=== PATIENT | male | born 1960 | race African-American/Black ===

== ENCOUNTER 2018-01-16 20:18 | Emergency (ER) | payer SELFPAY ==
[~2018-01-16] VITALS: Ht 177.8 cm; Wt 79.4 kg
[~2018-01-16 20:18] MED LIST: HYDR-971 PO; NAPR-683 PO
[2018-01-16 20:45] VITALS: BP 149/88
--- NOTE | 2018-01-16 21:27 | PHYS DOC ---
Past Medical History Past Medical History: No Pertinent History Past Surgical History: Tonsillectomy Smoking: Cigarettes, 1 Pack Per Day Alcohol Use: Occasionally Drug Use: None Adult General Chief Complaint Chief Complaint: Congestion HPI HPI Patient is a pleasant 57-year-old male, smoker, who presents to the emergency room for evaluation. He states that for the past 10 days, he has had nasal congestion, and a cough, which is mostly nonproductive. He states his congestion has moved down into his chest. He denies any significant shortness of breath, he does have some frontal headache, although he has had similar headaches in the past, the headache is not "worst headache of his life", and is not different than prior headaches he has had with minor illnesses. He denies otalgia or sore throat, abdominal pain, chest pain, nausea, vomiting. There are no alleviating or exacerbating factors to his symptoms he has taken over-the- counter medications without improvement in his symptoms. Review of Systems Review of Systems Constitutional: Denies fever or chills [] Eyes: Denies change in visual acuity, redness, or eye pain [] HENT: Denies otalgia or sore throat. Reports nasal congestion. [] Respiratory: Denies pleuritic chest pain or shortness of breath [] Cardiovascular: The patient denies any shortness of breath, chest pain, palpitations, or orthopnea [] GI: Denies abdominal pain, nausea, vomiting, bloody stools or diarrhea [] : Denies dysuria or hematuria [] Musculoskeletal: Denies back pain or joint pain [] Integument: Denies rash or skin lesions [] Neurologic: Denies mental status changes, weakness or sensory changes [] Allergies Allergies Allergies Coded Allergies Type Severity Reaction Last Updated Verified No Known Drug Allergies 05/27/14 No Physical Exam Physical Exam PHYSICAL EXAM: CONSTITUTIONAL: Well developed, well nourished HEAD: normocephalic, atraumatic EENT: PERRL, EOMI. Conjunctivae normal color, sclerae non-icteric; moist mucous membranes.Tympanic membranes are normal bilaterally. Oropharynx is nonerythematous. NECK: Supple, non-tender; no meningismus. LUNGS: Lungs CTA, breathing even and unlabored. Normal air movement. HEART: Regular rate and rhythm, no murmur CHEST: No deformity; non-tender ABDOMEN: The abdomen is soft, and non-tender, no masses or bruits. EXTREM: Normal ROM; no deformity, no calf tenderness. Normal pulses palpable in all extremities. There is no pedal edema. SKIN: No rash; no diaphoresis NEURO: Alert; normal speech and cognition; CN's grossly intact; strength grossly intact without focal deficit. BACK: No CVA TTP. Current Patient Data Vital Signs Vital Signs Date Time Temp Pulse Resp B/P (MAP) Pulse Ox O2 Delivery O2 Flow Rate FiO2 01/16/18 20:45 98.7 96 18 149/88 (108) 100 Room Air 98.7 EKG EKG [] Radiology/Procedures Radiology/Procedures [ER physician preliminary chest x-ray interpretation: No acute disease.] Course & Med Decision Making Course & Med Decision Making Pertinent Imaging studies reviewed. (See chart for details) [10:20 PM:Patient remains stable. I discussed test results, the need for close follow-up, and return precautions. The importance of smoking cessation was discussed with the patient.] Dragon Disclaimer Dragon Disclaimer This electronic medical record was generated, in whole or in part, using a voice recognition dictation system. Departure Departure Impression: Primary Impression: Upper respiratory infection Additional Impression: Cough Disposition: 01 HOME, SELF-CARE Condition: STABLE Referrals: ANNA AGUILAR MD (PCP) Patient Instructions: Cough, Adult, Smoking Cessation, Upper Respiratory Infection, Adult Additional Instructions: Gswc-srs-[id number] decongestants, such as Sudafed, may help improve your symptoms. Scripts Benzonatate (TESSALON PERLE) 100 Mg Capsule 100 MG PO TID PRN for COUGH, #30 CAP Prov: SELINA ZENDEJAS MD 01/16/18 Problem Qualifiers SELINA ZENDEJAS MD Jan 16, 2018 21:27
[2018-01-16] MEDS ORDERED: BENZ100C PO (22:23)
--- NOTE | 2018-01-17 05:21 | RAD ---
Indication:cough and congestion x a week TECHNIQUE:PA and lateral views of the chest COMPARISON: 01/30/2016 FINDINGS: Heart is normal in size. Lungs are hyperinflated with flattening of diaphragm. No pneumothorax or effusion. Visualized bony thorax within normal limits. IMPRESSION: Findings of COPD. Electronically signed by: Torres Smith DO (01/17/2018 5:17 AM) [facility]
== END 2018-01-16 22:39 | disposition home or self-care (01) ==
LOC: ER 20:18
DX: J06.9 Acute upper respiratory infection, unspecified (principal); R51 Headache; F17.210 Nicotine dependence, cigarettes, uncomplicated; Z90.89 Acquired absence of other organs
CPT/HCPCS: 71046; 99284

== ENCOUNTER 2018-08-20 13:40 | Emergency (ER) | payer SELFPAY ==
[~2018-08-20] VITALS: Ht 180.3 cm; Wt 68.0 kg
[~2018-08-20 13:40] MED LIST changes: +BENZ100C PO; +HYDR-3164 PO; -HYDR-971 PO
[2018-08-20 14:26] VITALS: BP 148/96
[2018-08-20] MEDS ORDERED: KETOROLAC 30 MG/ML VIAL. IM ONE (15:45)
--- NOTE | 2018-08-20 16:12 | RAD ---
Examination: 2 views of the sacrum and coccyx HISTORY: History of pain, fall. COMPARISON: None available. Findings: The alignment of the sacrum, coccyx grossly appears unremarkable. There is no obvious acute fracture identified. IMPRESSION: No acute osseous findings. Electronically signed by: Rafi Sauer MD (08/20/2018 4:09 PM) [facility]
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
== END 2018-08-20 16:41 | disposition home or self-care (01) ==
LOC: ER 13:40
DX: M54.5 Low back pain (principal); M53.3 Sacrococcygeal disorders, not elsewhere classified; Z90.89 Acquired absence of other organs; W10.2XXA Fall (on)(from) incline, initial encounter; Y93.89 Activity, other specified; Y92.89 Other specified places as the place of occurrence of the external cause; Y99.8 Other external cause status
CPT/HCPCS: 72220; 96372; 99284; J1885

== ENCOUNTER 2019-01-31 18:23 | Emergency (ER) | payer SELFPAY ==
[~2019-01-31] VITALS: Ht 181.6 cm; Wt 69.4 kg
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
[2019-01-31 19:08] LABS: BASO # 0.1 x10^3/uL (0.0-0.2); BASO % 1 % (0-3); EOS # 0.2 x10^3/uL (0.0-0.7); EOS % 3 % (0-3); HEMATOCRIT 39.7 % (39.0-53.0); HEMOGLOBIN 14.2 g/dL (13.0-17.5); LYMPH # 2.4 x10^3/uL (1.0-4.8); LYMPH % 30 % (24-48); MEAN CORPUSCULAR HEMOGLOBIN 30 pg (25-35); MEAN CORPUSCULAR HGB CONC 36 g/dL (31-37); MEAN CORPUSCULAR VOLUME 83 fL (79-100); MONO # 0.8 x10^3/uL (0.0-1.1); MONO % 10 % (0-9); NEUT # 4.5 x10^3/uL (1.8-7.7); NEUT % 57 % (31-73); PLATELET COUNT 276 x10^3/uL (140-400); RED CELL DISTRIBUTION WIDTH 14.5 % (11.5-14.5); WHITE BLOOD COUNT 7.9 x10^3/uL (4.0-11.0)
[2019-01-31 19:14] LABS: CALCIUM 9.6 mg/dL (8.5-10.1); CREATININE 1.4 mg/dL (0.7-1.3); GFR 62.6; POTASSIUM 4.1 mmol/L (3.5-5.1)
[2019-01-31 19:19] LABS: ALBUMIN 3.9 g/dL (3.4-5.0); ALBUMIN/GLOBULIN RATIO 1.1 (1.0-1.7); TOTAL BILIRUBIN 0.7 mg/dL (0.2-1.0); TOTAL PROTEIN 7.6 g/dL (6.4-8.2)
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
[2019-01-31] MEDS ORDERED: HYDR-3164 PO (20:28)
[2019-01-31] MEDS ORDERED: DICL50TA4 PO (20:28)
[2019-01-31] MEDS ORDERED: ORPH100T PO (20:28)
[2019-01-31 20:30] VITALS: BP 175/112
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
--- NOTE | 2019-02-01 12:00 | EKG ---
[facility] [address] [place] [address] Test Date: 2019-01-31 Test Time: 18:34:53 Pat Name: BROOKLYNN LUCIANO Department: Room: Gender: M Clinical Psychiatrist: : 1960 Requested By: WELLINGTON CUMMINS Order Number: [id number] Reading MD: Measurements Intervals [place] Rate: 78 P: 49 [place]: 144 QRS: 16 QRSD: 88 T: 31 QT: 378 QTc: 434 Interpretive Statements SINUS RHYTHM QRS(T) CONTOUR ABNORMALITY CONSISTENT WITH ANTEROSEPTAL INFARCT AGE UNDETERMINED ABNORMAL ECG RI6.01 No previous ECG available for comparison
== END 2019-01-31 20:52 | disposition home or self-care (01) ==
LOC: ER 18:23
DX: S16.1XXA Strain of muscle, fascia and tendon at neck level, initial encounter (principal); S29.012A Strain of muscle and tendon of back wall of thorax, initial encounter; S40.012A Contusion of left shoulder, initial encounter; R42 Dizziness and giddiness; Z90.89 Acquired absence of other organs; V53.5XXA Driver of pick-up truck or van injured in collision with car, pick-up truck or van in traffic accident, initial encounter; Y93.89 Activity, other specified; Y92.410 Unspecified street and highway as the place of occurrence of the external cause; Y99.8 Other external cause status
CPT/HCPCS: 36415; 70450; 71045; 72072; 72125; 73030; 80053; 84484; 85025; 93005; 99285-25

== ENCOUNTER 2019-02-04 14:01 | Emergency (ER) | payer OTHER ==
[~2019-02-04] VITALS: Ht 180.3 cm; Wt 69.4 kg
[~2019-02-04 14:01] MED LIST changes: +DICL50TA4 PO; +ORPH100T PO
[2019-02-04 14:23] VITALS: BP 170/103
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
== END 2019-02-04 15:36 | disposition home or self-care (01) ==
LOC: ER 14:01
DX: M54.5 Low back pain (principal); G89.11 Acute pain due to trauma; V49.88XA Car occupant (driver) (passenger) injured in other specified transport accidents, initial encounter; Y92.488 Other paved roadways as the place of occurrence of the external cause; Y93.89 Activity, other specified; Y99.8 Other external cause status
CPT/HCPCS: 72100; 99284

== ENCOUNTER 2019-11-11 15:15 | Emergency (ER) | payer SELFPAY ==
[~2019-11-11] VITALS: Ht 180.3 cm; Wt 70.0 kg
--- NOTE | 2019-11-11 16:10 | PHYS DOC ---
Past Medical History Past Medical History: No Pertinent History Past Surgical History: Tonsillectomy, Other Additional Past Surgical Histo: hernia, rt wrist,lt ankle Smoking Status: Current Every Day Smoker Alcohol Use: Occasionally Drug Use: None General Adult EDM: Chief Complaint: OTHER COMPLAINTS HPI: HPI: Patient is a 59 year old male who presents with right scapula pain that radiates down his right arm and causes intermittent numbness in his right arm. Patient reports that he woke up yesterday with the symptoms. He rates his pain 9 out of 10, it is worse with movement, he has been taking ibuprofen at home without any relief of symptoms. Patient reports that at this time he is not experiencing the numbness in his right arm. Review of Systems: Review of Systems: Constitutional: Denies fever or chills. [] Respiratory: Denies cough or shortness of breath. [] Cardiovascular: Denies chest pain or edema. [] Musculoskeletal: See HPI Neurologic: Denies headache, focal weakness or sensory changes. [] Psychiatric: Denies depression or anxiety. [] Heart Score: Risk Factors: Risk Factors: DM, Current or recent (<one month) smoker, HTN, HLP, family history of CAD, obesity. Risk Scores: Score 0 - 3: 2.5% MACE over next 6 weeks - Discharge Home Score 4 - 6: 20.3% MACE over next 6 weeks - Admit for Clinical Observation Score 7 - 10: 72.7% MACE over next 6 weeks - Early Invasive Strategies Allergies: Allergies: Allergies Coded Allergies Type Severity Reaction Last Updated Verified No Known Drug Allergies 05/27/14 No Physical Exam: PE: Constitutional: Well developed, well nourished, no acute distress, non-toxic appearance. [] HENT: Normocephalic, atraumatic, bilateral external ears normal, oropharynx moist, nose normal. [] Eyes: PERRLA, EOMI, conjunctiva normal, no discharge. [] Neck: Normal range of motion, no bony tenderness, supple, no stridor. [] Cardiovascular:Heart rate regular rhythm[] Lungs & Thorax: Bilateral breath sounds clear to auscultation [] Skin: Warm, dry, no erythema, no rash. [] Back: R trapezius muscle tenderness with palpation, no bony tenderness or deformity Extremities: R shoulder: no bony tenderness, no cyanosis, no clubbing, no edema, PMS intact. [] Neurologic: Alert and oriented X 3, normal motor function, normal sensory function, no focal deficits noted. [] Psychologic: Affect normal, judgement normal, mood normal. [] Current Patient Data: Vital Signs: Vital Signs Date Time Temp Pulse Resp B/P (MAP) Pulse Ox O2 Delivery O2 Flow Rate FiO2 11/11/19 15:48 98.0 84 20 175/116 (135) 98 Room Air 98.0 EKG: EKG: [] Radiology/Procedures: Radiology/Procedures: [] Course & Med Decision Making: Course & Med Decision Making Pertinent Labs and Imaging studies reviewed. (See chart for details) [] Dragon Disclaimer: [employer] Disclaimer: This electronic medical record was generated, in whole or in part, using a voice recognition dictation system. Departure Departure Impression: Primary Impression: Trapezius strain Qualified Codes: S46.811A - Strain of other muscles, fascia and tendons at shoulder and upper arm level, right arm, initial encounter Additional Impression: Radiculopathy affecting upper extremity Disposition: 01 HOME, SELF-CARE Condition: STABLE Referrals: ANNA AGUILAR MD (PCP) Patient Instructions: Trapezius Palsy with [facility] Additional Instructions: Fill the prescription(s) and use as directed. Apply heat or ice for to sore areas as needed for comfort. Activity as tolerated. Follow up with your primary care doctor or Dr. Cisse if symptoms persist, return to the ER if symptoms worsen. Scripts Prednisone (PREDNISONE) 20 Mg Tablet 1 TAB PO UD for 12 Days, #15 TAB 2 tabs by mouth days 1,2,3 then 1.5 tabs by mouth days 4,5,6 then 1 tab by mouth days 7,8,9 then 0.5 tab by mouth day 10,11,12 Prov: JULIUS LAWSON APRN 11/11/19 Cyclobenzaprine Hcl (CYCLOBENZAPRINE HCL) 10 Mg Tablet 1 TAB PO TID PRN for MUSCLE PAIN for 10 Days, #30 TAB 0 Refills Prov: JULIUS LAWSON APRN 11/11/19 Justicifation of Admission Dx: Justifications for Admission: Justification of Admission Dx: N/A JULIUS LAWSON APRN Nov 11, 2019 16:10
[2019-11-11] MEDS ORDERED: DEXAMETHASONE SOD PHOS 20 MG/5 ML VIAL. PO ONE (16:45)
[2019-11-11] MEDS ORDERED: ORPHENADRINE CITRATE 60 MG/2 ML VIAL. IM ONE (16:45)
[2019-11-11 17:30] VITALS: BP 170/106
[2019-11-11] MEDS ORDERED: CYCL10TA2 PO (17:31)
[2019-11-11] MEDS ORDERED: PRED20TA PO (17:31)
== END 2019-11-11 17:58 | disposition home or self-care (01) ==
LOC: ER 15:15
DX: S46.811A Strain of other muscles, fascia and tendons at shoulder and upper arm level, right arm, initial encounter (principal); R20.0 Anesthesia of skin; M54.10 Radiculopathy, site unspecified; F17.200 Nicotine dependence, unspecified, uncomplicated; Z98.890 Other specified postprocedural states; Z90.89 Acquired absence of other organs; X58.XXXA Exposure to other specified factors, initial encounter; Y93.89 Activity, other specified; Y92.89 Other specified places as the place of occurrence of the external cause; Y99.8 Other external cause status
CPT/HCPCS: 96372; 99283; J1100; J2360

== ENCOUNTER 2020-05-02 18:12 | Emergency (ER) | payer OTHER ==
[~2020-05-02] VITALS: Ht 180.3 cm; Wt 69.0 kg
[~2020-05-02 18:12] MED LIST changes: +CYCL10TA2 PO; +PRED20TA PO
[2020-05-02 19:34] VITALS: BP 140/99
[2020-05-02] MEDS ORDERED: METH4TAB2 PO (20:25)
[2020-05-02] MEDS ORDERED: NAPR220C4 PO (20:25)
[2020-05-02] MEDS ORDERED: CYCL10TA2 PO (20:25)
--- NOTE | 2020-05-02 20:26 | PHYS DOC ---
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 Patient describes the pain as burning. Denies any pain radiating to bilateral lower extremities. Denies any loss of bowel/bladder function. Denies any pain to the mid back, states most of the pain is on range of motion to his back Review of Systems: Review of Systems: Constitutional: Denies fever or chills. [] GI: Denies abdominal pain, nausea, vomiting, bloody stools or diarrhea. [] : Denies dysuria. [] Musculoskeletal: Reports bilateral low back pain Integument: Denies rash. [] Neurologic: Denies headache, focal weakness or sensory changes. [] Psychiatric: Denies depression or anxiety. [] Heart Score: Risk Factors: Risk Factors: DM, Current or recent (<one month) smoker, HTN, HLP, family history of CAD, obesity. Risk Scores: Score 0 - 3: 2.5% MACE over next 6 weeks - Discharge Home Score 4 - 6: 20.3% MACE over next 6 weeks - Admit for Clinical Observation Score 7 - 10: 72.7% MACE over next 6 weeks - Early Invasive Strategies Allergies: Allergies: Allergies Coded Allergies Type Severity Reaction Last Updated Verified No Known Drug Allergies 05/27/14 No Physical Exam: PE: Constitutional: Well developed, well nourished, no acute distress, non-toxic appearance. Abdomen: Bowel sounds normal, soft, no tenderness, no masses, no pulsatile masses. [] Skin: Warm, dry, no erythema, no rash. [] Back: Diffuse paraspinal muscle tenderness bilateral lumbar spine, no midline lumbar spine tenderness, no CVA tenderness. [] Extremities: No tenderness, no cyanosis, no clubbing, ROM intact, no edema. [] Neurologic: Alert and oriented X 3, normal motor function, normal sensory function, no focal deficits noted. [] Psychologic: Affect normal, judgement normal, mood normal. [] Current Patient Data: Vital Signs: Vital Signs Date Time Temp Pulse Resp B/P (MAP) Pulse Ox O2 Delivery O2 Flow Rate FiO2 05/02/20 19:34 97.9 86 18 140/99 (113) 98 Room Air 97.9 EKG: EKG: [] Radiology/Procedures: Radiology/Procedures: [] Course & Med Decision Making: Course & Med Decision Making Pertinent Labs and Imaging studies reviewed. (See chart for details) This is a 60-year-old male patient presented to the ED today with a lumbosacral strain, patient lifted a bump at work and developed low back pain. No cauda equina syndrome symptoms. Was discharged to home. Follow-up with primary care doctor. Etienne Disclaimer: Etienne Disclaimer: This electronic medical record was generated, in whole or in part, using a voice recognition dictation system. Departure Departure Impression: Primary Impression: Acute lumbosacral myofascial strain Qualified Codes: S39.012A - Strain of muscle, fascia and tendon of lower back, initial encounter Disposition: 01 DC HOME SELF CARE/HOMELESS Condition: STABLE Referrals: NO PCP (PCP) follow up with your doctor in one week Patient Instructions: Lumbosacral Strain Additional Instructions: You were seen for lumbosacral strain. Consider using a heating pad to your low back. Take the prescribed medications as ordered. Follow-up with your doctor in 1 to 2 weeks Scripts Naproxen Sodium (ALEVE) 220 Mg Capsule 220 MG PO BID PRN for PAIN, #14 CAP Prov: MYNOR LAZARO APRN 05/02/20 Methylprednisolone (MEDROL) 4 Mg Tab.ds.pk 1 PKG PO UD, #1 PKG Prov: MYNOR LAZARO APRN 05/02/20 Cyclobenzaprine Hcl (CYCLOBENZAPRINE HCL) 10 Mg Tablet 1 TAB PO TID, #30 TAB Prov: MYNOR LAZARO APRN 05/02/20 NEREIDAKevinMYNOR LENORE May 02, 2020 20:26
== END 2020-05-02 20:48 | disposition home or self-care (01) ==
LOC: ER 18:12
DX: S39.012A Strain of muscle, fascia and tendon of lower back, initial encounter (principal); F17.200 Nicotine dependence, unspecified, uncomplicated; X50.9XXA Other and unspecified overexertion or strenuous movements or postures, initial encounter; Y93.89 Activity, other specified; Y92.69 Other specified industrial and construction area as the place of occurrence of the external cause; Y99.8 Other external cause status
CPT/HCPCS: 99283

== ENCOUNTER 2021-04-15 12:52 | Emergency (ER) | payer SELFPAY ==
[~2021-04-15] VITALS: Ht 180.3 cm; Wt 69.4 kg
[~2021-04-15 12:52] MED LIST changes: +CYCL10TA19 PO; -CYCL10TA2 PO; +METH4TAB2 PO; +NAPR220C4 PO
[2021-04-15] MEDS ORDERED: KETOROLAC 30 MG/ML VIAL. IVP ONE (13:15)
[2021-04-15] MEDS ORDERED: diphenhydrAMINE 50 MG/ML VIAL IVP ONE (13:15)
[2021-04-15] MEDS ORDERED: PROCHLORPERAZINE 10 MG/2 ML VIAL. IV ONE (13:15)
--- NOTE | 2021-04-15 13:22 | PHYS DOC ---
Past Medical History Past Medical History: No Pertinent History Past Surgical History: Tonsillectomy, Other Additional Past Surgical Histo: hernia, rt wrist,lt ankle Smoking Status: Current Every Day Smoker Additional Information: >0.5 PPD Alcohol Use: Occasionally Drug Use: None General Adult EDM: Chief Complaint: HYPERTENSION HPI: HPI: Patient is a 61-year-old male who presents to the emergency department for elevated blood pressure reading at home. Patient reports that he has had a generalized headache since yesterday and he googled that and said that it he might have an elevated blood pressure reading. He checked his blood pressure with a wrist cuff that his sister had at home and said that his blood pressure was 201/142. He does not have a history of hypertension and does not take any medications at home. Patient denies chest pain, shortness of breath, dizziness, nausea, vomiting, neutral rigidity, fevers, thunderclap headache. Patient did not take anything for his headache prior to arrival. Patient states he recently had a tooth pulled and has had generalized head and facial pain since and was unsure if that was the cause of his headache. When patient arrived his bp is mildly elevated at 156/103. Review of Systems: Review of Systems: 14 body systems of the review of systems have been reviewed. See HPI for pertinent positive and negative responses, otherwise all other systems are negative, nonpertinent or noncontributory Heart Score: C/O Chest Pain: No Risk Factors: Risk Factors: DM, Current or recent (<one month) smoker, HTN, HLP, family history of CAD, obesity. Risk Scores: Score 0 - 3: 2.5% MACE over next 6 weeks - Discharge Home Score 4 - 6: 20.3% MACE over next 6 weeks - Admit for Clinical Observation Score 7 - 10: 72.7% MACE over next 6 weeks - Early Invasive Strategies Current Medications: Current Medications Medications (Trade) Dose Ordered Sig/Candie Start Time Stop Time Status Last Admin Dose Admin Diphenhydramine HCl (Benadryl) 25 mg 1X ONCE 04/15/21 13:15 04/15/21 13:16 UNV Ketorolac Tromethamine (Toradol 30mg Vial) 30 mg 1X ONCE 04/15/21 13:15 04/15/21 13:16 UNV Prochlorperazine Edisylate (Compazine) 10 mg 1X ONCE 04/15/21 13:15 04/15/21 13:16 UNV Allergies: Allergies: Allergies Coded Allergies Type Severity Reaction Last Updated Verified No Known Drug Allergies 05/27/14 No Physical Exam: PE: Constitutional: Well developed, well nourished, no acute distress, non-toxic appearance. [] HENT: Normocephalic, atraumatic, bilateral external ears normal, oropharynx moist, no oral exudates, nose normal, no facial swelling. [] Eyes: PERRL, EOMI, conjunctiva normal, no discharge. [] Neck: Normal range of motion, no tenderness, no nuchal rigidity, supple, no stridor. [] Cardiovascular:Heart rate regular rhythm, no murmur [] Lungs & Thorax: Bilateral breath sounds clear to auscultation [] Abdomen: Bowel sounds normal, soft, no tenderness, no masses, no pulsatile masses. [] Skin: Warm, dry, no erythema, no rash. [] Back: normal ROM Extremities: No tenderness, no cyanosis, no clubbing, ROM intact, no edema. [] Neurologic: Alert and oriented X 3, normal motor function, normal sensory function, no focal deficits noted. [] Psychologic: Affect normal, judgement normal, mood normal. [] Current Patient Data: Labs: Laboratory Tests Test 04/15/21 13:51 White Blood Count 9.6 x10^3/uL Red Blood Count 5.04 x10^6/uL Hemoglobin 14.5 g/dL Hematocrit 41.9 % Mean Corpuscular Volume 83 fL Mean Corpuscular Hemoglobin 29 pg Mean Corpuscular Hemoglobin Concent 35 g/dL Red Cell Distribution Width 14.5 % Platelet Count 302 x10^3/uL Neutrophils (%) (Auto) 68 % Lymphocytes (%) (Auto) 20 % Monocytes (%) (Auto) 7 % Eosinophils (%) (Auto) 3 % Basophils (%) (Auto) 1 % Neutrophils # (Auto) 6.6 x10^3/uL Lymphocytes # (Auto) 1.9 x10^3/uL Monocytes # (Auto) 0.7 x10^3/uL Eosinophils # (Auto) 0.3 x10^3/uL Basophils # (Auto) 0.1 x10^3/uL Sodium Level 139 mmol/L Potassium Level 4.9 mmol/L Chloride Level 107 mmol/L Carbon Dioxide Level 25 mmol/L Anion Gap 7 Blood Urea Nitrogen 14 mg/dL Creatinine 1.1 mg/dL Estimated GFR (Cockcroft-Gault) 81.8 BUN/Creatinine Ratio 13 Glucose Level 109 mg/dL Calcium Level 8.5 mg/dL Total Bilirubin 0.5 mg/dL Aspartate Amino Transf (AST/SGOT) 18 U/L Alanine Aminotransferase (ALT/SGPT) 23 U/L Alkaline Phosphatase 73 U/L Troponin I High Sensitivity 10 ng/L Total Protein 6.5 g/dL Albumin 2.9 g/dL Albumin/Globulin Ratio 0.8 Current Medications Medications (Trade) Dose Ordered Sig/Candie Route PRN Reason Start Time Stop Time Status Last Admin Dose Admin Prochlorperazine Edisylate (Compazine) 10 mg 1X ONCE IV 04/15/21 13:15 04/15/21 13:19 DC 04/15/21 13:58 Diphenhydramine HCl (Benadryl) 25 mg 1X ONCE IVP 04/15/21 13:15 04/15/21 13:19 DC 04/15/21 13:58 Ketorolac Tromethamine (Toradol 30mg Vial) 30 mg 1X ONCE IVP 04/15/21 13:15 04/15/21 13:19 DC 04/15/21 13:58 Vital Signs: Vital Signs Date Time Temp Pulse Resp B/P (MAP) Pulse Ox O2 Delivery O2 Flow Rate FiO2 04/15/21 12:54 98.2 81 16 156/103 (120) 98 Room Air 98.2 EKG: EKG: [] Radiology/Procedures: Radiology/Procedures: [] Course & Med Decision Making: Course & Med Decision Making Pertinent Labs and Imaging studies reviewed. (See chart for details) Patient presents to the emergency department for generalized headache that started last night. Patient believes that his headache may have been caused by his recent tooth that was removed or elevated blood pressure. He does not have a history of hypertension does not take any medications at home. Patient denies any symptoms that would indicate acute organ damage. He does not have any meningeal signs. No thunderclap headache. Work-up in the ER consisted of blood work and his headache was treated with a migraine cocktail. Following treatment in the emergency department, patient reports relief in his headache. Work-up in the ER was unremarkable, patient did not have any findings consistent with endorgan damage. Patient's blood pressure has improved to 150/90. Patient advised to purchase a blood pressure cuff and monitor his blood pressures and keep a log and follow-up with his primary care provider if he requires any blood pressure medication. Advised to take Tylenol/ibuprofen for pain. I discussed with patient all findings and diagnostic testing as well as the need to follow-up with PCP for further evaluation and treatment or return to the ER if any new or worsening symptoms. Strict return precautions were also discussed at length. Patient voiced understanding and agreement with the plan. Patient is hemodynamically stable at the time of disposition. Dragon Disclaimer: [employer] Disclaimer: This electronic medical record was generated, in whole or in part, using a voice recognition dictation system. Departure Departure Impression: Primary Impression: Asymptomatic hypertension Disposition: HOME / SELF CARE / HOMELESS Condition: GOOD Referrals: NO PCP (PCP) Patient Instructions: General Headache Without Cause, [id number], Hypertension Additional Instructions: You were seen in the emergency department today for a headache and elevated blood pressure readings at home. Your headache was treated with a migraine cocktail and you reported improvement in your symptoms. Please continue to take Tylenol and/or ibuprofen for pain at home. Increase your fluids and rest. I would advise you to purchase a blood pressure cuff and monitor your blood pressures at home and keep a log of them. Please follow-up with your primary care provider on Saturday regarding your ER visit. Next time you follow-up with your primary care provider, you can show them your log of blood pressures and they can determine if you require blood pressure management. Please return to the emergency department if you develop worsening of your headache, chest pain, shortness of breath, dizziness, intractable vomiting, fevers, body aches or any new or worsening concerns. MARGARITO TINOCO APRN Apr 15, 2021 13:22
[2021-04-15 13:58] LABS: BASO # 0.1 x10^3/uL (0.0-0.2); BASO % 1 % (0-3); EOS # 0.3 x10^3/uL (0.0-0.7); EOS % 3 % (0-3); HEMATOCRIT 41.9 % (39.0-53.0); HEMOGLOBIN 14.5 g/dL (13.0-17.5); LYMPH # 1.9 x10^3/uL (1.0-4.8); LYMPH % 20 % (24-48); MEAN CORPUSCULAR HEMOGLOBIN 29 pg (25-35); MEAN CORPUSCULAR HGB CONC 35 g/dL (31-37); MEAN CORPUSCULAR VOLUME 83 fL (79-100); MONO # 0.7 x10^3/uL (0.0-1.1); MONO % 7 % (0-9); NEUT # 6.6 x10^3/uL (1.8-7.7); NEUT % 68 % (31-73); PLATELET COUNT 302 x10^3/uL (140-400); RED BLOOD COUNT 5.04 x10^6/uL (4.30-5.70); RED CELL DISTRIBUTION WIDTH 14.5 % (11.5-14.5); WHITE BLOOD COUNT 9.6 x10^3/uL (4.0-11.0)
[2021-04-15 14:07] LABS: CALCIUM 8.5 mg/dL (8.5-10.1); CREATININE 1.1 mg/dL (0.7-1.3); GFR 81.8; POTASSIUM 4.9 mmol/L (3.5-5.1)
[2021-04-15 14:13] LABS: ALBUMIN 2.9 g/dL (3.4-5.0); ALBUMIN/GLOBULIN RATIO 0.8 (1.0-1.7); TOTAL BILIRUBIN 0.5 mg/dL (0.2-1.0); TOTAL PROTEIN 6.5 g/dL (6.4-8.2)
[2021-04-15 14:16] VITALS: BP 153/92
== END 2021-04-15 14:37 | disposition home or self-care (01) ==
LOC: ER 12:52
DX: I10 Essential (primary) hypertension (principal); F17.200 Nicotine dependence, unspecified, uncomplicated
CPT/HCPCS: 36415; 80053; 84484; 85025; 96374; 96375; 99284; J0780; J1200; J1885

== ENCOUNTER 2021-07-16 10:37 | Inpatient (IN) | payer SELFPAY ==
[~2021-07-16] VITALS: Ht 181.6 cm; Wt 70.7 kg
[2021-07-16] MEDS ORDERED: hydrALAZINE 20 MG/ML VIAL. IVP ONE (11:45)
[2021-07-16] MEDS ORDERED: IV NORMAL SALINE 1000ML BAG 1,000 ML IV ONE (11:45)
[2021-07-16 12:07] LABS: BASO # 0.1 x10^3/uL (0.0-0.2); BASO % 1 % (0-3); EOS # 0.2 x10^3/uL (0.0-0.7); EOS % 2 % (0-3); HEMATOCRIT 42.2 % (39.0-53.0); HEMOGLOBIN 14.8 g/dL (13.0-17.5); LYMPH % 20 % (24-48); MEAN CORPUSCULAR HEMOGLOBIN 28 pg (25-35); MEAN CORPUSCULAR HGB CONC 35 g/dL (31-37); MEAN CORPUSCULAR VOLUME 81 fL (79-100); MONO # 0.7 x10^3/uL (0.0-1.1); MONO % 7 % (0-9); NEUT # 6.9 x10^3/uL (1.8-7.7); NEUT % 70 % (31-73); PLATELET COUNT 286 x10^3/uL (140-400); RED BLOOD COUNT 5.22 x10^6/uL (4.30-5.70); RED CELL DISTRIBUTION WIDTH 15.3 % (11.5-14.5); WHITE BLOOD COUNT 9.9 x10^3/uL (4.0-11.0)
[2021-07-16 12:18] LABS: CALCIUM 8.8 mg/dL (8.5-10.1); CREATININE 1.2 mg/dL (0.7-1.3); POTASSIUM 4.1 mmol/L (3.5-5.1)
[2021-07-16 12:19] LABS: BACTERIA,URINE 0 /HPF (0-FEW); RBC,URINE 0 /HPF (0-2); WBC,URINE OCC /HPF (0-4)
[2021-07-16 12:24] LABS: ALBUMIN 3.6 g/dL (3.4-5.0); ALBUMIN/GLOBULIN RATIO 0.9 (1.0-1.7); TOTAL BILIRUBIN 0.4 mg/dL (0.2-1.0); TOTAL PROTEIN 7.5 g/dL (6.4-8.2)
--- NOTE | 2021-07-16 12:56 | RAD ---
INDICATION: Reason: Dizziness, hypertensive emergency / Spl. Instructions: / History: COMPARISON: January 2019 TECHNIQUE: Axial CT images obtained through the head without intravenous contrast. One or more of the following individualized dose reduction techniques were utilized for this examinat ion: 1. Automated exposure control; 2. Adjustment of the mA and/or kV according to patient size; 3 . Use of iterative reconstruction technique. FINDINGS: No intracranial hemorrhage. No significant midline shift. Ventricles and sulci are globally prominent. Scattered foci of low attenuation within the white matter. Region of low density in the cerebellum. Portions of vascular are high density including in the basil ar artery region. IMPRESSION: * There is a region of low density within the left side of the cerebellum. Given the patient's symp toms and the presence of this finding this could be secondary to either an area of edema from causes such as left-sided cerebellar ischemia or gliosis from infarct which has occurred after the patient's prior study from January 2019. MRI could better assess the acuity of this finding since it could be acute or chronic. There is also some high density at the basilar artery in this region which could be from the patient's calcific atherosclerosis and artifact but could be further evaluated on MRI as we ll to ensure that there is no thrombus contributing to this appearance. Report called to the ER at 12 :39 PM on date of exam. * Scattered regions of low attenuation within the white matter. Non-specific in nature but a common finding and frequently secondary to small vessel ischemic disease. Electronically signed by: Landon Jacinto MD (07/16/2021 12:54 PM) [id number]
--- NOTE | 2021-07-16 13:01 | PHYS DOC ---
Past Medical History Past Medical History: No Pertinent History Past Surgical History: Tonsillectomy, Other Additional Past Surgical Histo: hernia, rt wrist,lt ankle Smoking Status: Current Every Day Smoker Alcohol Use: Occasionally Drug Use: None General Adult EDM: Chief Complaint: HYPERTENSION HPI: HPI: Patient is a 61 male presents to the emergency department complaining of sudden onset of headache with feeling off balance that started yesterday at approximately 1 PM. 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 Patient reported a 10 out of 10 pain yesterday, did not take pain medications, woke up this morning with similar symptoms stating that his head does not hurt as bad as it did yesterday currently rating it a 9 out of 10. Reports pain in his head hurts all over, cannot pinpoint a specific area of pain. Denies nausea, vomiting, diarrhea. Reports periods of blurred vision but currently denies visual disturbances at this time. Patient denies recent fever or chills, denies chest pains, chest palpitations, chest or nasal congestion. Patient reports being recently diagnosed with hypertension in which his primary care provider started him on 25 mg losartan once daily. Patient denies a family history of sudden cardiac , however does report a family history of hypertension, diabetes, and heart disease. Patient states he does smoke cigarettes, drinks occasionally, denies illicit drug use. Patient denies other physical complaints or physical concerns. Review of Systems: Review of Systems: 14 body systems of review of systems have been reviewed. See HPI for pertinent positives and negative responses, otherwise all other systems are negative, nonpertinent or noncontributory. Constitutional: Negative except as outlined in HPI above. Skin: Negative except as outlined in HPI above. Eyes: Negative except as outlined in HPI above. HENT: Negative except as outlined in HPI above. Respiratory: Negative except as outlined in HPI above. Cardiovascular: Negative except as outlined in HPI above. GI: Negative except as outlined in HPI above. : Negative except as outlined in HPI above. Musculoskeletal: Negative except as outlined in HPI above. Integument: Negative except as outlined in HPI above. Neurologic: Negative except as outlined in HPI above. Endocrine: Negative except as outlined in HPI above. Lymphatic: Negative except as outlined in HPI above. Psychiatric: Negative except as outlined in HPI above. Heart Score: C/O Chest Pain: No Risk Factors: Risk Factors: DM, Current or recent (<one month) smoker, HTN, HLP, family history of CAD, obesity. Risk Scores: Score 0 - 3: 2.5% MACE over next 6 weeks - Discharge Home Score 4 - 6: 20.3% MACE over next 6 weeks - Admit for Clinical Observation Score 7 - 10: 72.7% MACE over next 6 weeks - Early Invasive Strategies Current Medications: Current Medications Medications (Trade) Dose Ordered Sig/Candie Start Time Stop Time Status Last Admin Dose Admin Diphenhydramine HCl (Benadryl) 25 mg 1X ONCE 07/16/21 13:00 07/16/21 13:01 UNV Fentanyl Citrate (Fentanyl 2ml Vial) 75 mcg 1X ONCE 07/16/21 13:00 07/16/21 13:01 UNV Hydralazine HCl (Apresoline Inj) 10 mg 1X ONCE 07/16/21 11:45 07/16/21 11:46 DC 07/16/21 11:50 10 MG Prochlorperazine Edisylate (Compazine) 10 mg 1X ONCE 07/16/21 13:00 07/16/21 13:01 UNV Sodium Chloride 1,000 ml @ 1,000 mls/hr 1X ONCE 07/16/21 11:45 07/16/21 12:44 DC 07/16/21 11:52 1,000 MLS/HR Allergies: Allergies: Allergies Coded Allergies Type Severity Reaction Last Updated Verified No Known Drug Allergies 05/27/14 No Physical Exam: PE: Constitutional: Well developed, well nourished, no acute distress, non-toxic appearance. 61-year-old male in no apparent distress. Patient's complaint of p ain level exceeds patient's presentation and examination. HENT: Normocephalic, atraumatic. Oropharynx moist, pink, no deep tissue infectious process appreciated, bilateral TMs intact and within normal limits. There is no lymphadenopathy of the head or neck appreciated. Eyes: Conjunctiva normal, no discharge. Nose scleral icterus appreciated Neck: Normal range of motion, no stridor. No meningismus signs, no nuchal rigidity. Cardiovascular: No cyanosis appreciated, distal cap refill less than 2 seconds. Heart sounds S1-S2 dilatation, RRR. Lungs & Thorax: Patient is in no respiratory distress, no audible adventitious lung sounds appreciated. Normal work of breathing, lung sounds clear to auscultation all lung baez. Abdomen: Nontender, no abnormalities noted. Skin: Warm, dry, no erythema, no rash. Back: No tenderness, no deformities. Extremities: No tenderness, no cyanosis, no clubbing, ROM intact, no edema. Neurologic: Alert and oriented X 3, normal motor function, normal sensory function, no focal deficits noted. Satisfactory heel bishop test bilaterally, satisfactory nose finger test, ED NIHSS scale equals 0. Psychologic: Affect normal, judgement normal, mood normal. Current Patient Data: Labs: Laboratory Tests Test 07/16/21 11:43 07/16/21 11:50 Urine Collection Type Unknown Urine Color (Auto) Light yellow Urine Turbidity Clear Urine pH (Auto) 5.5 (<5.0-8.0) Urine Specific [place] 1.015 (1.000-1.030) Urine Protein (Auto) Negative mg/dL (Negative) Urine Glucose (Auto)(UA) Negative mg/dL (Negative) Urine Ketones (Auto) Negative mg/dL (Negative) Urine Blood (Auto) Negative (Negative) Urine Nitrite Negative (Negative) Urine Bilirubin (Auto) Negative (Negative) Urine Urobilinogen (Auto) Normal mg/dL (Normal) Urine Leukocyte Esterase (Auto) Negative (Negative) Urine RBC 0 /HPF (0-2) Urine WBC Occ /HPF (0-4) Urine Squamous Epithelial Cells Occ /LPF Urine Bacteria 0 /HPF (0-FEW) Urine Mucus Slight /LPF White Blood Count 9.9 x10^3/uL (4.0-11.0) Red Blood Count 5.22 x10^6/uL (4.30-5.70) Hemoglobin 14.8 g/dL (13.0-17.5) Hematocrit 42.2 % (39.0-53.0) Mean Corpuscular Volume 81 fL (79-100) Mean Corpuscular Hemoglobin 28 pg (25-35) Mean Corpuscular Hemoglobin Concent 35 g/dL (31-37) Red Cell Distribution Width 15.3 % (11.5-14.5) H Platelet Count 286 x10^3/uL (140-400) Neutrophils (%) (Auto) 70 % (31-73) Lymphocytes (%) (Auto) 20 % (24-48) L Monocytes (%) (Auto) 7 % (0-9) Eosinophils (%) (Auto) 2 % (0-3) Basophils (%) (Auto) 1 % (0-3) Neutrophils # (Auto) 6.9 x10^3/uL (1.8-7.7) Lymphocytes # (Auto) 2.0 x10^3/uL (1.0-4.8) Monocytes # (Auto) 0.7 x10^3/uL (0.0-1.1) Eosinophils # (Auto) 0.2 x10^3/uL (0.0-0.7) Basophils # (Auto) 0.1 x10^3/uL (0.0-0.2) Sodium Level 141 mmol/L (136-145) Potassium Level 4.1 mmol/L (3.5-5.1) Chloride Level 105 mmol/L (98-107) Carbon Dioxide Level 27 mmol/L (21-32) Anion Gap 9 (6-14) Blood Urea Nitrogen 16 mg/dL (8-26) Creatinine 1.2 mg/dL (0.7-1.3) Estimated GFR (Cockcroft-Gault) 74.0 BUN/Creatinine Ratio 13 (6-20) Glucose Level 106 mg/dL (70-99) H Calcium Level 8.8 mg/dL (8.5-10.1) Total Bilirubin 0.4 mg/dL (0.2-1.0) Aspartate Amino Transferase (AST) 18 U/L (15-37) Alanine Aminotransferase (ALT) 22 U/L (16-63) Alkaline Phosphatase 86 U/L (46-116) Troponin I High Sensitivity 18 ng/L (4-75) AU-Jad-P-Type Natriuretic Peptide 61 pg/mL (0-124) Total Protein 7.5 g/dL (6.4-8.2) Albumin 3.6 g/dL (3.4-5.0) Albumin/Globulin Ratio 0.9 (1.0-1.7) L Laboratory Tests 07/16/21 11:50 Laboratory Tests 07/16/21 11:50 Vital Signs: Vital Signs Date Time Temp Pulse Resp B/P (MAP) Pulse Ox O2 Delivery O2 Flow Rate FiO2 07/16/21 11:56 78 20 167/113 (131) 97 Room Air 07/16/21 10:43 97.8 97.8 EKG: EKG: EKG performed 1142 by ED nursing staff shows a normal sinus rhythm with leftward axis deviation, heart rate 69 bpm, TX interval 0.142, QTc interval 0.434, there is no acute STEMI, no ACS, no acute ischemia appreciated, EKG interpreted by ED attending physician Dr. Braxton. Radiology/Procedures: Radiology/Procedures: REASON: Dizziness, hypertensive emergency PROCEDURE: CT HEAD WO CONTRAST INDICATION: Reason: Dizziness, hypertensive emergency / Spl. Instructions: / History: COMPARISON: January 2019 TECHNIQUE: Axial CT images obtained through the head without intravenous contrast. One or more of the following individualized dose reduction techniques were utilized for this examination: 1. Automated exposure control; 2. Adjustment of the mA and/or kV according to patient size; 3. Use of iterative reconstruction technique. FINDINGS: No intracranial hemorrhage. No significant midline shift. Ventricles and sulci are globally prominent. Scattered foci of low attenuation within the white matter. Region of low density in the cerebellum. Portions of vascular are high density including in the basilar artery region. IMPRESSION: * There is a region of low density within the left side of the cerebellum. Given the patient's symptoms and the presence of this finding this could be secondary to either an area of edema from causes such as left-sided cerebellar ischemia or gliosis from infarct which has occurred after the patient's prior study from January 2019. MRI could better assess the acuity of this finding since it could be acute or chronic. There is also some high density at the basilar artery in this region which could be from the patient's calcific atherosclerosis and artifact but could be further evaluated on MRI as well to ensure that there is no thrombus contributing to this appearance. Report called to the ER at 12:39 PM on date of exam. * Scattered regions of low attenuation within the white matter. Non-specific in nature but a common finding and frequently secondary to small vessel ischemic disease. Electronically signed by: Landon Jacinto MD (07/16/2021 12:54 PM) DESKTOP- [id number] Course & Med Decision Making: Course & Med Decision Making Pertinent Labs and Imaging studies reviewed. (See chart for details) 51-year-old male, vital signs reviewed, presents emergency department concerning headache with feeling unbalanced. Patient physical examination is unremarkable, patient has a complaint of pain that exceeds presentation examination, patient does present in hypertensive crisis, right brachial blood pressure 178/121, left brachial prep lecture 178/106. Will order CT head without contrast, CBC, CMP, urinalysis assay, EKG, troponin I to rule out hypertension with endorgan damage, will order 10 mg hydralazine. Cardiac monitoring. House radiologist called to review CT head with concerns of acute left PICA infarct of cerebellum, these are apparent changes when compared to previous CT head without contrast in 2019. Recommended MRI for further evaluation. Called and discussed patient case and ED work-up with neurology specialist Dr. Mejia who recommends patient have 324 aspirin, no further blood pressure management, current blood pressure is 176/110. Recommended calling banquet houseperson to have hazmat technician to be called in for emergent MRI brain. This has been ordered, will review results with Dr. Mejia when available. Discussed with neurologist recommendations with patient, patient is amenable to ED angela nning. Patient is outside TPA window. Symptoms started yesterday at 1 PM. MRI of brain concerning for acute on subacute cerebellar infarct, called and discussed findings with neurology specialist Dr. Mejia who recommends patient be admitted to the hospital, start on atorvastatin 20 mg daily, admit to inpatient management services. Called and discussed patient case and ED work-up with inpatient management physician Dr. Capellan, discussed Dr. Mejia's recommendations, Dr. Capellan agrees patient's case warrants admission to med telemetry unit, patient is awaiting room assignment from banquet houseperson at this time, remains hemodynamically stable. Etienne Disclaimer: Etienne Disclaimer: This electronic medical record was generated, in whole or in part, using a voice recognition dictation system. NIHSS Stroke Scale NIH Stroke Scale: NIH Stroke Scale Response (Comments) Value Level of Consciousness: 0 Alert/Responsive 0 LOC Questions: 0 Answers both correctly 0 LOC Commands: 0 Performs both tasks 0 Best Gaze: 0 Normal 0 Visual: 0 No visual loss 0 Facial Palsy: 0 Normal, symmetrical 0 Motor - Left Arm 0 No drift 0 Motor - Right Arm 0 No drift 0 Motor - Left Leg 0 No drift 0 Motor: Right Leg 0 No drift 0 Limb Ataxia: 0 Absent 0 Sensory: 0 No loss 0 Best Language: 0 Normal 0 Dysathria: 0 Normal 0 Extinction and Inattention: 0 Normal 0 Total 0 Departure Departure Impression: Primary Impression: Cerebellar infarction Additional Impressions: Headache Qualified Codes: R51.9 - Headache, unspecified Hypertensive urgency Disposition: ADMITTED INPATIENT Admitting Physician: EMILY (Admit to [facility] telemetry unit to Dr. Capellan, neurology consult Dr. Mejia.) Condition: GUARDED Referrals: NO PCP (PCP) MERCEDES CARO APRN Jul 16, 2021 13:01
[2021-07-16] MEDS ORDERED: diphenhydrAMINE 50 MG/ML VIAL IVP ONE (13:30)
[2021-07-16] MEDS ORDERED: fentaNYL PF VIAL 100 MCG/2 ML VIAL IVP ONE (13:30)
[2021-07-16] MEDS ORDERED: PROCHLORPERAZINE 10 MG/2 ML VIAL. IV ONE (13:30)
[2021-07-16] MEDS ORDERED: LABETALOL 20 MG/4 ML DISP.SYRIN. IVP ONE (13:45)
[2021-07-16] MEDS ORDERED: ASPIRIN CHEWABLE 81 MG TABLET. PO ONE (13:45)
--- NOTE | 2021-07-16 14:12 | RAD ---
EXAMINATION: Chest radiograph. VIEWS: 1 COMPARISON: 01/31/2019 INDICATION:61 years, Male, dizziness, hypertensive emergency. FINDINGS: Normal cardiomediastinal silhouette. Linear atelectatic changes versus scar in the left lung base. No focal consolidation. No pleural effusion or pneumothorax. No acute osseous process. IMPRESSION: No acute cardiopulmonary process. Electronically signed by: Mai Cat MD (07/16/2021 2:10 PM) [facility]
[2021-07-16] MEDS ORDERED: GADOTERATE 7.5 MMOL/15ML VIAL. IVP ONE (16:00)
--- NOTE | 2021-07-16 17:06 | RAD ---
EXAMINATION: MRI brain without and with IV contrast INDICATION: Headache, hypertensive crisis abnormal exam, further evaluation. COMPARISON: Same day CT brain. TECHNIQUE: MRI of the brain was performed using high-resolution multiplanar multisequence imaging. FINDINGS: There is restricted diffusion within the posterior-inferior left cerebellar hemisphere, inferior port ion of the vermis and left aspect of the cerebellar tonsil, distribution of posterior inferior cerebe llar artery. The area is bright on the T2/FLAIR images. It associated parenchymal swelling is noted. There is no evidence of hemorrhagic transformation at this time. Mild brain parenchymal volume loss. Scattered T2/FLAIR hyperintense foci in the supratentorial perive ntricular white matter and abad, indeterminate but most likely representing chronic microangiopathic disease. Scattered old lacunar infarcts in the periventricular region. No extra-axial fluid collectio n. No intraparenchymal masses. No abnormal intracranial enhancement. Normal signal voids of the major intracranial vessels. The paranasal sinuses and mastoid air cells are clear. The orbital contents appear within normal limi ts. IMPRESSION: 1. Acute on subacute infarct involving posterior-inferior left cerebellar hemisphere, inferior portio n of the vermis, distribution of the posterior inferior cerebellar artery. No evidence of hemorrhagic transformation at this time. 2. Normal signal void and enhancement of the major intracranial vessels including basilar artery. Electronically signed by: Mai Cat MD (07/16/2021 5:04 PM) [facility]
[2021-07-16] MEDS ORDERED: ZOLPIDEM 5 MG TABLET. PO PRN ×2 (18:15→18:30)
[2021-07-16] MEDS ORDERED: ONDANSETRON PF 4 MG/2 ML VIAL. IVP PRN ×2 (18:15→18:30)
[2021-07-16] MEDS ORDERED: DEXTROSE 50% 25 GM / 50ML DISP.SYRIN. IV PRN ×2 (18:15→18:30)
[2021-07-16] MEDS ORDERED: diphenhydrAMINE 50 MG/ML VIAL IVP PRN ×2 (18:15→18:30)
[2021-07-16] MEDS ORDERED: LABETALOL 20 MG/4 ML DISP.SYRIN. IVP PRN ×3 (18:15→20:00)
[2021-07-16] MEDS ORDERED: hydrALAZINE 20 MG/ML VIAL. IVP PRN ×2 (18:15→18:30)
[2021-07-16] MEDS ORDERED: diphenhydrAMINE HCL 25 MG CAPSULE PO PRN ×4 (18:15→18:30)
[2021-07-16] MEDS ORDERED: DOCUSATE SODIUM 100 MG CAPSULE. PO PRN ×2 (18:15→18:30)
[2021-07-16] MEDS ORDERED: ACETAMINOPHEN 325 MG TABLET. PO PRN ×2 (18:15→18:30)
[2021-07-16] MEDS ORDERED: LORazepam 0.5 MG TABLET PO PRN ×2 (18:15→18:30)
[2021-07-16] MEDS ORDERED: SENNOSIDES 8.6 MG TABLET PO PRN ×2 (18:15→18:30)
[2021-07-16] MEDS ORDERED: PROCHLORPERAZINE 10 MG/2 ML VIAL. IV PRN ×2 (18:15→18:30)
[2021-07-16 19:30] VITALS: BP 146/91
--- NOTE | 2021-07-16 19:30 | NUR ---
Patient arrived to room 113 prior to shift change. Patient hooked up to tele monitors already when I arrived for my shift. Patient SR on monitor, on RA, A&Ox4, PERRL, strength equal bilaterally with minimal change in sensation on L arm and leg, patent IV present, and no complaints of pain. VSS. Sister at bedside. Oriented to unit routines, call light, bed controls, tv controls, and POC.
[2021-07-16] MEDS ORDERED: ATORVASTATIN CALCIUM 20 MG TABLET PO SCH (21:00)
[2021-07-16] MEDS ORDERED: LOSA-362 PO (21:42)
[2021-07-16 23:00] VITALS: BP 136/75
[2021-07-17 03:00] VITALS: BP 162/105
--- NOTE | 2021-07-17 04:50 | EKG ---
[facility] [address] [place] [address] Test Date: 2021-07-16 Test Time: 11:42:26 Pat Name: BROOKLYNN LUCIANO Department: Room: 113 1 Gender: M Surveillance Officer: : 1960 Requested By: MERCEDES CARO Order Number: [id number] Reading MD: Rodolfo Sorenson MD Measurements Intervals [place] Rate: 69 P: 51 IA: 142 QRS: 0 QRSD: 94 T: 20 QT: 404 QTc: 434 Interpretive Statements SINUS RHYTHM LEFTWARD AXIS QRS(T) CONTOUR ABNORMALITY CONSISTENT WITH ANTEROSEPTAL INFARCT AGE UNDETERMINED ABNORMAL ECG Electronically Signed On 07-18-2021 7:00:48 CDT by Rodolfo Sorenson MD
[2021-07-17 07:00] VITALS: BP 165/102
--- NOTE | 2021-07-17 08:57 | PDOC1 ---
History and Physical Date of Admission Date of Admission DATE: 07/17/21 TIME: 08:51 Identification/Chief Complaint Chief Complaint Headache Source Source: Patient History of Present Illness History of Present Illness Patient is a 61-year-old male with past medical history hypertension, who presents to the ER with complaints of 2-day history of sudden onset headache with associated dizziness, loss of balance, and blurry vision. Labs admission largely unremarkable; WBC 9.9, hemoglobin 14.8, hematocrit 42.2, glucose 105. His blood pressure was markedly elevated at 210/110. He does admit to a recent diagnosis of hypertension, for which his PCP prescribed him losartan. CT head on admission was concerning for a region of low density within the left side of the cerebellum. MRI brain was obtained that showed acute on subacute infarct involving posterior-inferior left cerebellar hemisphere, inferior portion of the vermis, distribution of the posterior inferior cerebellar artery. The patient was admitted for further medical management. Past Medical History Cardiovascular: HTN Past Surgical History Past Surgical History: Hernia Repair, Tonsillectomy Family History Family History: Coronary Artery Disease, Diabetes, Hypertension Social History Smoke: No ALCOHOL: occassional Drugs: None Current Problem List Problem List Problems Medical Problems: (1) Cerebellar infarction Status: Acute (2) Headache Status: Acute (3) Hypertensive urgency Status: Acute Current Medications Current Medications Current Medications Sodium Chloride 1,000 ml @ 1,000 mls/hr 1X ONCE IV Last administered on 07/16/21at 11:52; Start 07/16/21 at 11:45; Stop 07/16/21 at 12:44; Status DC Hydralazine HCl (Apresoline Inj) 10 mg 1X ONCE IVP Last administered on 07/16/21at 11:50; Start 07/16/21 at 11:45; Stop 07/16/21 at 11:46; Status DC Prochlorperazine Edisylate (Compazine) 10 mg 1X ONCE IV Last administered on 07/16/21at 13:21; Start 07/16/21 at 13:30; Stop 07/16/21 at 13:31; Status DC Diphenhydramine HCl (Benadryl) 25 mg 1X ONCE IVP Last administered on 07/16/21at 13:22; Start 07/16/21 at 13:30; Stop 07/16/21 at 13:31; Status DC Fentanyl Citrate (Fentanyl 2ml Vial) 75 mcg 1X ONCE IVP Last administered on 07/16/21at 13:22; Start 07/16/21 at 13:30; Stop 07/16/21 at 13:31; Status DC Aspirin (Aspirin Chewable) 324 mg 1X ONCE PO Last administered on 07/16/21at 1 4:01; Start 07/16/21 at 13:45; Stop 07/16/21 at 13:48; Status DC Labetalol HCl (Normodyne Iv Push) 20 mg 1X ONCE IVP Last administered on 07/16/21at 14:03; Start 07/16/21 at 13:45; Stop 07/16/21 at 13:48; Status DC Gadoterate Meglumine (Clariscan) 14 ml 1X ONCE IVP Last administered on 07/16/21at 16:34; Start 07/16/21 at 16:00; Stop 07/16/21 at 16:02; Status DC Atorvastatin Calcium (Lipitor) 20 mg QHS PO Last administered on 07/16/21at 21:19; Start 07/16/21 at 21:00 Hydralazine HCl (Apresoline Inj) 10 mg PRN Q4HRS PRN IVP ELEVATED BP, SEE COMMENTS; Start 07/16/21 at 18:15; Stop 07/16/21 at 18:39; Status DC Labetalol HCl (Normodyne Iv Push) 20 mg Q2HR PRN IVP HYPERTENSION; Start 07/16/21 at 18:15; Stop 07/16/21 at 18:39; Status DC Sennosides (Senna) 17.2 mg PRN BID PRN PO CONSTIPATION; Start 07/16/21 at 18:15; Stop 07/16/21 at 18:39; Status DC Docusate Sodium (Colace) 100 mg PRN DAILY PRN PO HARD STOOLS; Start 07/16/21 at 18:15; Stop 07/16/21 at 18:39; Status DC Ondansetron HCl (Zofran) 4 mg PRN Q6HRS PRN IVP NAUSEA/VOMITING, 1st CHOICE; Start 07/16/21 at 18:15; Stop 07/16/21 at 18:39; Status DC Dextrose (Dextrose 50%-Water Syringe) 12.5 gm PRN Q15MIN PRN IV SEE COMMENTS; Start 07/16/21 at 18:15; Stop 07/16/21 at 18:39; Status DC Acetaminophen (Tylenol) 650 mg PRN Q4HRS PRN PO TEMP OVER 100.4F OR MILD PAIN; Start 07/16/21 at 18:15; Stop 07/16/21 at 18:39; Status DC Lorazepam (Ativan) 0.5 mg PRN Q6HRS PRN PO ANXIETY / AGITATION; Start 07/16/21 at 18:15; Stop 07/16/21 at 18:39; Status DC Lorazepam (Ativan Inj) 0.25 mg PRN Q4HRS PRN IV ANXIETY / AGITATION; Start 07/16/21 at 18:15; Stop 07/16/21 at 18:39; Status DC Prochlorperazine Edisylate (Compazine) 10 mg PRN Q6HRS PRN IV NAUSEA/VOMITING, 2nd CHOICE; Start 07/16/21 at 18:15; Stop 07/16/21 at 18:39; Status DC Diphenhydramine HCl (Benadryl) 25 mg PRN Q6HRS PRN IVP ITCHING; Start 07/16/21 at 18:15; Stop 07/16/21 at 18:39; Status DC Diphenhydramine HCl (Benadryl) 25 mg PRN Q6HRS PRN PO ITCHING; Start 07/16/21 at 18:15; Stop 07/16/21 at 18:39; Status DC Diphenhydramine HCl (Benadryl) 25 mg PRN QHS PRN PO INSOMNIA, 1st CHOICE; Start 07/16/21 at 18:15; Stop 07/16/21 at 18:39; Status DC Zolpidem Tartrate (Ambien) 2.5 mg PRN QHS PRN PO INSOMNIA, 2nd CHOICE; Start 07/16/21 at 18:15; Stop 07/16/21 at 18:39; Status DC Hydralazine HCl (Apresoline Inj) 10 mg PRN Q4HRS PRN IVP ELEVATED BP, SEE COMMENTS; Start 07/16/21 at 18:30 Labetalol HCl (Normodyne Iv Push) 20 mg Q2HR PRN IVP HYPERTENSION; Start 07/16/21 at 18:30; Stop 07/16/21 at 19:45; Status DC Sennosides (Senna) 17.2 mg PRN BID PRN PO CONSTIPATION; Start 07/16/21 at 18:30 Docusate Sodium (Colace) 100 mg PRN DAILY PRN PO HARD STOOLS; Start 07/16/21 at 18:30 Ondansetron HCl (Zofran) 4 mg PRN Q6HRS PRN IVP NAUSEA/VOMITING, 1st CHOICE; Start 07/16/21 at 18:30 Dextrose (Dextrose 50%-Water Syringe) 12.5 gm PRN Q15MIN PRN IV SEE COMMENTS; Start 07/16/21 at 18:30 Acetaminophen (Tylenol) 650 mg PRN Q4HRS PRN PO TEMP OVER 100.4F OR MILD PAIN; Start 07/16/21 at 18:30 Lorazepam (Ativan) 0.5 mg PRN Q6HRS PRN PO ANXIETY / AGITATION; Start 07/16/21 at 18:30 Lorazepam (Ativan Inj) 0.25 mg PRN Q4HRS PRN IV ANXIETY / AGITATION; Start 07/16/21 at 18:30 Prochlorperazine Edisylate (Compazine) 10 mg PRN Q6HRS PRN IV NAUSEA/VOMITING, 2nd CHOICE; Start 07/16/21 at 18:30 Diphenhydramine HCl (Benadryl) 25 mg PRN Q6HRS PRN IVP ITCHING; Start 07/16/21 at 18:30 Diphenhydramine HCl (Benadryl) 25 mg PRN Q6HRS PRN PO ITCHING; Start 07/16/21 at 18:30 Diphenhydramine HCl (Benadryl) 25 mg PRN QHS PRN PO INSOMNIA, 1st CHOICE; Start 07/16/21 at 18:30 Zolpidem Tartrate (Ambien) 2.5 mg PRN QHS PRN PO INSOMNIA, 2nd CHOICE; Start 07/16/21 at 18:30 Labetalol HCl (Normodyne Iv Push) 20 mg PRN Q2HRS PRN IVP HYPERTENSION; Start 07/16/21 at 20:00 Active Scripts Active Reported Losartan Potassium 25 Mg Tablet 1 Tab PO DAILY Allergies Allergies: Coded Allergies: No Known Drug Allergies (Unverified , 05/27/14) ROS Review of System GENERAL: No history of weight change, weakness or fevers. SKIN: No bruising, hair changes or rashes. EYES: No blurred, double or loss of vision. NOSE AND THROAT: No history of nosebleeds, hoarseness or sore throat. HEART: Denies chest pain, denies palpitations. LUNGS: Denies cough, hemoptysis, wheezing or shortness of breath. GASTROINTESTINAL: Denies nausea, vomiting, abdominal pain. GENITOURINARY: Denies dysuria, frequency, urgency, hematuria. NEUROLOGIC: Denies history of numbness, tingling, tremor or weakness. PSYCHIATRIC: Denies anxiety, denies depression. ENDOCRINE: No history of heat or cold intolerance, polyuria or polydipsia. EXTREMITIES: Denies muscle weakness, joint pain, pain on walking or stiffness. Physical Exam Physical Exam General: Alert, Oriented X3, Cooperative, No acute distress HEENT: PERRLA, EOMI Lungs: Clear to auscultation, Normal air movement Heart: RRR, no murmurs Cardiovascular: S1, S2 Abdomen: Normal bowel sounds, Soft, No tenderness Extremities: No clubbing, No cyanosis Skin: No rashes, No significant lesion Neuro: Normal speech, Normal tone, Sensation intact Psych/Mental Status: Mental status NL, Mood NL Vitals Vitals Vital Signs Date Time Temp Pulse Resp B/P (MAP) Pulse Ox O2 Delivery O2 Flow Rate FiO2 07/17/21 07:00 98.6 69 17 165/102 (123) 95 Room Air 98.6 Labs Labs Laboratory Tests Test 07/16/21 11:43 07/16/21 11:50 Urine Collection Type Unknown Urine Color (Auto) Light yellow Urine Turbidity Clear Urine pH (Auto) 5.5 (<5.0-8.0) Urine Specific [place] 1.015 (1.000-1.030) Urine Protein (Auto) Negative mg/dL (Negative) Urine Glucose (Auto)(UA) Negative mg/dL (Negative) Urine Ketones (Auto) Negative mg/dL (Negative) Urine Blood (Auto) Negative (Negative) Urine Nitrite Negative (Negative) Urine Bilirubin (Auto) Negative (Negative) Urine Urobilinogen (Auto) Normal mg/dL (Normal) Urine Leukocyte Esterase (Auto) Negative (Negative) Urine RBC 0 /HPF (0-2) Urine WBC Occ /HPF (0-4) Urine Squamous Epithelial Cells Occ /LPF Urine Bacteria 0 /HPF (0-FEW) Urine Mucus Slight /LPF White Blood Count 9.9 x10^3/uL (4.0-11.0) Red Blood Count 5.22 x10^6/uL (4.30-5.70) Hemoglobin 14.8 g/dL (13.0-17.5) Hematocrit 42.2 % (39.0-53.0) Mean Corpuscular Volume 81 fL (79-100) Mean Corpuscular Hemoglobin 28 pg (25-35) Mean Corpuscular Hemoglobin Concent 35 g/dL (31-37) Red Cell Distribution Width 15.3 % (11.5-14.5) Platelet Count 286 x10^3/uL (140-400) Neutrophils (%) (Auto) 70 % (31-73) Lymphocytes (%) (Auto) 20 % (24-48) Monocytes (%) (Auto) 7 % (0-9) Eosinophils (%) (Auto) 2 % (0-3) Basophils (%) (Auto) 1 % (0-3) Neutrophils # (Auto) 6.9 x10^3/uL (1.8-7.7) Lymphocytes # (Auto) 2.0 x10^3/uL (1.0-4.8) Monocytes # (Auto) 0.7 x10^3/uL (0.0-1.1) Eosinophils # (Auto) 0.2 x10^3/uL (0.0-0.7) Basophils # (Auto) 0.1 x10^3/uL (0.0-0.2) Sodium Level 141 mmol/L (136-145) Potassium Level 4.1 mmol/L (3.5-5.1) Chloride Level 105 mmol/L (98-107) Carbon Dioxide Level 27 mmol/L (21-32) Anion Gap 9 (6-14) Blood Urea Nitrogen 16 mg/dL (8-26) Creatinine 1.2 mg/dL (0.7-1.3) Estimated GFR (Cockcroft-Gault) 74.0 BUN/Creatinine Ratio 13 (6-20) Glucose Level 106 mg/dL (70-99) Calcium Level 8.8 mg/dL (8.5-10.1) Total Bilirubin 0.4 mg/dL (0.2-1.0) Aspartate Amino Transf (AST/SGOT) 18 U/L (15-37) Alanine Aminotransferase (ALT/SGPT) 22 U/L (16-63) Alkaline Phosphatase 86 U/L (46-116) Troponin I High Sensitivity 18 ng/L (4-75) VL-Isd-E-Type Natriuretic Peptide 61 pg/mL (0-124) Total Protein 7.5 g/dL (6.4-8.2) Albumin 3.6 g/dL (3.4-5.0) Albumin/Globulin Ratio 0.9 (1.0-1.7) Laboratory Tests Test 07/16/21 11:43 07/16/21 11:50 Urine Collection Type Unknown Urine Color (Auto) Light yellow Urine Turbidity Clear Urine pH (Auto) 5.5 (<5.0-8.0) Urine Specific [place] 1.015 (1.000-1.030) Urine Protein (Auto) Negative mg/dL (Negative) Urine Glucose (Auto)(UA) Negative mg/dL (Negative) Urine Ketones (Auto) Negative mg/dL (Negative) Urine Blood (Auto) Negative (Negative) Urine Nitrite Negative (Negative) Urine Bilirubin (Auto) Negative (Negative) Urine Urobilinogen (Auto) Normal mg/dL (Normal) Urine Leukocyte Esterase (Auto) Negative (Negative) Urine RBC 0 /HPF (0-2) Urine WBC Occ /HPF (0-4) Urine Squamous Epithelial Cells Occ /LPF Urine Bacteria 0 /HPF (0-FEW) Urine Mucus Slight /LPF White Blood Count 9.9 x10^3/uL (4.0-11.0) Red Blood Count 5.22 x10^6/uL (4.30-5.70) Hemoglobin 14.8 g/dL (13.0-17.5) Hematocrit 42.2 % (39.0-53.0) Mean Corpuscular Volume 81 fL (79-100) Mean Corpuscular Hemoglobin 28 pg (25-35) Mean Corpuscular Hemoglobin Concent 35 g/dL (31-37) Red Cell Distribution Width 15.3 % (11.5-14.5) Platelet Count 286 x10^3/uL (140-400) Neutrophils (%) (Auto) 70 % (31-73) Lymphocytes (%) (Auto) 20 % (24-48) Monocytes (%) (Auto) 7 % (0-9) Eosinophils (%) (Auto) 2 % (0-3) Basophils (%) (Auto) 1 % (0-3) Neutrophils # (Auto) 6.9 x10^3/uL (1.8-7.7) Lymphocytes # (Auto) 2.0 x10^3/uL (1.0-4.8) Monocytes # (Auto) 0.7 x10^3/uL (0.0-1.1) Eosinophils # (Auto) 0.2 x10^3/uL (0.0-0.7) Basophils # (Auto) 0.1 x10^3/uL (0.0-0.2) Sodium Level 141 mmol/L (136-145) Potassium Level 4.1 mmol/L (3.5-5.1) Chloride Level 105 mmol/L (98-107) Carbon Dioxide Level 27 mmol/L (21-32) Anion Gap 9 (6-14) Blood Urea Nitrogen 16 mg/dL (8-26) Creatinine 1.2 mg/dL (0.7-1.3) Estimated GFR (Cockcroft-Gault) 74.0 BUN/Creatinine Ratio 13 (6-20) Glucose Level 106 mg/dL (70-99) Calcium Level 8.8 mg/dL (8.5-10.1) Total Bilirubin 0.4 mg/dL (0.2-1.0) Aspartate Amino Transf (AST/SGOT) 18 U/L (15-37) Alanine Aminotransferase (ALT/SGPT) 22 U/L (16-63) Alkaline Phosphatase 86 U/L (46-116) Troponin I High Sensitivity 18 ng/L (4-75) TH-Sfh-M-Type Natriuretic Peptide 61 pg/mL (0-124) Total Protein 7.5 g/dL (6.4-8.2) Albumin 3.6 g/dL (3.4-5.0) Albumin/Globulin Ratio 0.9 (1.0-1.7) Images Images PATIENT: BROOKLYNN LUCIANO LACCOUNT: [id number] : 1960 LOCATION: ER AGE: 61 SEX: M EXAM STATUS: REG ER ORD. PHYSICIAN: MERCEDES CARO APRN REASON: Dizziness, hypertensive emergency PROCEDURE: CT HEAD WO CONTRAST INDICATION: Reason: Dizziness, hypertensive emergency / Spl. Instructions: / History: COMPARISON: January 2019 TECHNIQUE: Axial CT images obtained through the head without intravenous contrast. One or more of the following individualized dose reduction techniques were utilized for this examination: 1. Automated exposure control; 2. Adjustment of the mA and/or kV according to patient size; 3. Use of iterative reconstruction technique. FINDINGS: No intracranial hemorrhage. No significant midline shift. Ventricles and sulci are globally prominent. Scattered foci of low attenuation within the white matter. Region of low density in the cerebellum. Portions of vascular are high density including in the basilar artery region. IMPRESSION: * There is a region of low density within the left side of the cerebellum. Given the patient's symptoms and the presence of this finding this could be secondary to either an area of edema from causes such as left-sided cerebellar ischemia or gliosis from infarct which has occurred after the patient's prior study from January 2019. MRI could better assess the acuity of this finding since it could be acute or chronic. There is also some high density at the basilar artery in this region which could be from the patient's calcific atherosclerosis and artifact but could be further evaluated on MRI as well to ensure that there is no thrombus contributing to this appearance. Report called to the ER at 12:39 PM on date of exam. * Scattered regions of low attenuation within the white matter. Non-specific in nature but a common finding and frequently secondary to small vessel ischemic disease. PATIENT: BROOKLYNN LUCIANO LACCOUNT: [id number] : 1960 LOCATION: ER AGE: 61 SEX: M EXAM STATUS: REG ER ORD. PHYSICIAN: MERCEDES CARO APRN REASON: Abnormal CT scan, headache, hypertensive crisis. 14mL CLARISCAN PROCEDURE: BRAIN WO/W CONTRAST EXAMINATION: MRI brain without and with IV contrast INDICATION: Headache, hypertensive crisis abnormal exam, further evaluation. COMPARISON: Same day CT brain. TECHNIQUE: MRI of the brain was performed using high-resolution multiplanar multisequence imaging. FINDINGS: There is restricted diffusion within the posterior-inferior left cerebellar hemisphere, inferior portion of the vermis and left aspect of the cerebellar tonsil, distribution of posterior inferior cerebellar artery. The area is bright on the T2/FLAIR images. It associated parenchymal swelling is noted. There is no evidence of hemorrhagic transformation at this time. Mild brain parenchymal volume loss. Scattered T2/FLAIR hyperintense foci in the supratentorial periventricular white matter and abad, indeterminate but most likely representing chronic microangiopathic disease. Scattered old lacunar infarcts in the periventricular region. No extra-axial fluid collection. No intraparenchymal masses. No abnormal intracranial enhancement. Normal signal voids of the major intracranial vessels. The paranasal sinuses and mastoid air cells are clear. The orbital contents appear within normal limits. IMPRESSION: 1. Acute on subacute infarct involving posterior-inferior left cerebellar hemisphere, inferior portion of the vermis, distribution of the posterior inferior cerebellar artery. No evidence of hemorrhagic transformation at this time. 2. Normal signal void and enhancement of the major intracranial vessels including basilar artery. VTE Prophylaxis Ordered VTE Prophylaxis Devices: No VTE Pharmacological Prophylaxi: Yes Assessment/Plan Assessment/Plan Acute CVA Hypertensive urgency Plan: At the time my evaluation he is already been seen by neurology and cleared to discharge home. Patient symptoms of dizziness, loss of balance, and headache have resolved. Personally observe this patient ambulating without difficulty or concern. He will follow up with his PCP within 1 week for tighter blood pressure control and further work-up. Greater than 30 minutes was spent managing the discharge of this patient. Justifications for Admission Other Justification Stroke TIMUR MAURO MD Jul 17, 2021 08:57
--- NOTE | 2021-07-17 09:24 | PDOC2 ---
NEUROLOGY CONSULT Date of Service DOS: DATE: 07/17/21 TIME: 09:16 Reason for Consult Reason for Consult: Stroke Referring Physician Referring Physician: Dr. Ramires Source Source: Chart review, Patient History of Present Illness History of Present Illness The patient is a 61-year-old right-handed male who had acute onset of headache and feeling off balance starting at 1300 on 07/15. He presented to the emergency department on 07/16. He underwent a CT scan of the head and subsequently an MRI of the brain, positive for stroke as reviewed below. There is no prior history of stroke, seizure, or head injury. He recently started on antihypertensives about 2 weeks ago. There is no diplopia, dysphagia, dysarthria, or cognitive change. 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, smokes a half a pack of cigarettes per day, no street drug Current Medications Current Medications Current Medications Sodium Chloride 1,000 ml @ 1,000 mls/hr 1X ONCE IV Last administered on 07/16/21at 11:52; Start 07/16/21 at 11:45; Stop 07/16/21 at 12:44; Status DC Hydralazine HCl (Apresoline Inj) 10 mg 1X ONCE IVP Last administered on 07/16/21at 11:50; Start 07/16/21 at 11:45; Stop 07/16/21 at 11:46; Status DC Prochlorperazine Edisylate (Compazine) 10 mg 1X ONCE IV Last administered on at 13:21; Start 07/16/21 at 13:30; Stop 07/16/21 at 13:31; Status DC Diphenhydramine HCl (Benadryl) 25 mg 1X ONCE IVP Last administered on 07/16/21at 13:22; Start 07/16/21 at 13:30; Stop 07/16/21 at 13:31; Status DC Fentanyl Citrate (Fentanyl 2ml Vial) 75 mcg 1X ONCE IVP Last administered on 07/16/21at 13:22; Start 07/16/21 at 13:30; Stop 07/16/21 at 13:31; Status DC Aspirin (Aspirin Chewable) 324 mg 1X ONCE PO Last administered on 07/16/21at 14:01; Start 07/16/21 at 13:45; Stop 07/16/21 at 13:48; Status DC Labetalol HCl (Normodyne Iv Push) 20 mg 1X ONCE IVP Last administered on 07/16/21at 14:03; Start 07/16/21 at 13:45; Stop 07/16/21 at 13:48; Status DC Gadoterate Meglumine (Clariscan) 14 ml 1X ONCE IVP Last administered on 07/16/21at 16:34; Start 07/16/21 at 16:00; Stop 07/16/21 at 16:02; Status DC Atorvastatin Calcium (Lipitor) 20 mg QHS PO Last administered on 07/16/21at 21:19; Start 07/16/21 at 21:00 Hydralazine HCl (Apresoline Inj) 10 mg PRN Q4HRS PRN IVP ELEVATED BP, SEE COMMENTS; Start 07/16/21 at 18:15; Stop 07/16/21 at 18:39; Status DC Labetalol HCl (Normodyne Iv Push) 20 mg Q2HR PRN IVP HYPERTENSION; Start 07/16/21 at 18:15; Stop 07/16/21 at 18:39; Status DC Sennosides (Senna) 17.2 mg PRN BID PRN PO CONSTIPATION; Start 07/16/21 at 18:15; Stop 07/16/21 at 18:39; Status DC Docusate Sodium (Colace) 100 mg PRN DAILY PRN PO HARD STOOLS; Start 07/16/21 at 18:15; Stop 07/16/21 at 18:39; Status DC Ondansetron HCl (Zofran) 4 mg PRN Q6HRS PRN IVP NAUSEA/VOMITING, 1st CHOICE; Start 07/16/21 at 18:15; Stop 07/16/21 at 18:39; Status DC Dextrose (Dextrose 50%-Water Syringe) 12.5 gm PRN Q15MIN PRN IV SEE COMMENTS; Start 07/16/21 at 18:15; Stop 07/16/21 at 18:39; Status DC Acetaminophen (Tylenol) 650 mg PRN Q4HRS PRN PO TEMP OVER 100.4F OR MILD PAIN; Start 07/16/21 at 18:15; Stop 07/16/21 at 18:39; Status DC Lorazepam (Ativan) 0.5 mg PRN Q6HRS PRN PO ANXIETY / AGITATION; Start 07/16/21 at 18:15; Stop 07/16/21 at 18:39; Status DC Lorazepam (Ativan Inj) 0.25 mg PRN Q4HRS PRN IV ANXIETY / AGITATION; Start 07/16/21 at 18:15; Stop 07/16/21 at 18:39; Status DC Prochlorperazine Edisylate (Compazine) 10 mg PRN Q6HRS PRN IV NAUSEA/VOMITING, 2nd CHOICE; Start 07/16/21 at 18:15; Stop 07/16/21 at 18:39; Status DC Diphenhydramine HCl (Benadryl) 25 mg PRN Q6HRS PRN IVP ITCHING; Start 07/16/21 at 18:15; Stop 07/16/21 at 18:39; Status DC Diphenhydramine HCl (Benadryl) 25 mg PRN Q6HRS PRN PO ITCHING; Start 07/16/21 at 18:15; Stop 07/16/21 at 18:39; Status DC Diphenhydramine HCl (Benadryl) 25 mg PRN QHS PRN PO INSOMNIA, 1st CHOICE; Start 07/16/21 at 18:15; Stop 07/16/21 at 18:39; Status DC Zolpidem Tartrate (Ambien) 2.5 mg PRN QHS PRN PO INSOMNIA, 2nd CHOICE; Start 07/16/21 at 18:15; Stop 07/16/21 at 18:39; Status DC Hydralazine HCl (Apresoline Inj) 10 mg PRN Q4HRS PRN IVP ELEVATED BP, SEE COMMENTS; Start 07/16/21 at 18:30 Labetalol HCl (Normodyne Iv Push) 20 mg Q2HR PRN IVP HYPERTENSION; Start 07/16/21 at 18:30; Stop 07/16/21 at 19:45; Status DC Sennosides (Senna) 17.2 mg PRN BID PRN PO CONSTIPATION; Start 07/16/21 at 18:30 Docusate Sodium (Colace) 100 mg PRN DAILY PRN PO HARD STOOLS; Start 07/16/21 at 18:30 Ondansetron HCl (Zofran) 4 mg PRN Q6HRS PRN IVP NAUSEA/VOMITING, 1st CHOICE; Start 07/16/21 at 18:30 Dextrose (Dextrose 50%-Water Syringe) 12.5 gm PRN Q15MIN PRN IV SEE COMMENTS; Start 07/16/21 at 18:30 Acetaminophen (Tylenol) 650 mg PRN Q4HRS PRN PO TEMP OVER 100.4F OR MILD PAIN; Start 07/16/21 at 18:30 Lorazepam (Ativan) 0.5 mg PRN Q6HRS PRN PO ANXIETY / AGITATION; Start 07/16/21 at 18:30 Lorazepam (Ativan Inj) 0.25 mg PRN Q4HRS PRN IV ANXIETY / AGITATION; Start 07/16/21 at 18:30 Prochlorperazine Edisylate (Compazine) 10 mg PRN Q6HRS PRN IV NAUSEA/VOMITING, 2nd CHOICE; Start 07/16/21 at 18:30 Diphenhydramine HCl (Benadryl) 25 mg PRN Q6HRS PRN IVP ITCHING; Start 07/16/21 at 18:30 Diphenhydramine HCl (Benadryl) 25 mg PRN Q6HRS PRN PO ITCHING; Start 07/16/21 at 18:30 Diphenhydramine HCl (Benadryl) 25 mg PRN QHS PRN PO INSOMNIA, 1st CHOICE; Start 07/16/21 at 18:30 Zolpidem Tartrate (Ambien) 2.5 mg PRN QHS PRN PO INSOMNIA, 2nd CHOICE; Start 07/16/21 at 18:30 Labetalol HCl (Normodyne Iv Push) 20 mg PRN Q2HRS PRN IVP HYPERTENSION; Start 07/16/21 at 20:00 Active Scripts Active Reported Losartan Potassium 25 Mg Tablet 1 Tab PO DAILY Allergies Allergies: Coded Allergies: No Known Drug Allergies (Unverified , 05/27/14) ROS Review of System Negative for fever, chills, weight loss, shortness of breath, chest pain, indigestion, hematochezia, melena, and dysuria. Full 14-point review of systems is negative. Physical Exam Physical Examination General: Well-developed, well-nourished, black male in no acute distress HEENT: Normocephalic andatraumatic. Temporal arteriespulsatile and nontender. Neck: Supple without bruit, no meningismus Musculoskeletal: Stability:see neurologic. Gait exam:see neurologic. Tone:see neurologic.Strength:see neurologic. Neurological: Mental Status:intact, orientation, memory, attention span/concentration, language, fund of knowledge normal. Cranial Nerves:Pupils equal and reactive to light, extraocular movements areintact, visual baez are full to confrontation. Facial sensation is normal. There is no facial asymmetry. Vestibulo-ocular reflex is intact. Palate elevates and tongue protrudes in mi dline. All other cranial related problems are negative except as mentioned before.Reflexes:2+ and symmetric with flexor plantar responses. Motor:5/5 strength with normal tone and bulk. Coordination:Finger-nose finger and hurl-dz-uyka testing are normal. Rapid alternating movements and fine finger movements are intact. Gait:A little ataxic. Sensory:Patchy hypesthesia on the left side Vitals VITALS Vital Signs Date Time Temp Pulse Resp B/P (MAP) Pulse Ox O2 Delivery O2 Flow Rate FiO2 07/17/21 07:00 98.6 69 17 165/102 (123) 95 Room Air 98.6 Labs Labs Laboratory Tests Test 07/16/21 11:43 07/16/21 11:50 Urine Collection Type Unknown Urine Color (Auto) Light yellow Urine Turbidity Clear Urine pH (Auto) 5.5 (<5.0-8.0) Urine Specific [place] 1.015 (1.000-1.030) Urine Protein (Auto) Negative mg/dL (Negative) Urine Glucose (Auto)(UA) Negative mg/dL (Negative) Urine Ketones (Auto) Negative mg/dL (Negative) Urine Blood (Auto) Negative (Negative) Urine Nitrite Negative (Negative) Urine Bilirubin (Auto) Negative (Negative) Urine Urobilinogen (Auto) Normal mg/dL (Normal) Urine Leukocyte Esterase (Auto) Negative (Negative) Urine RBC 0 /HPF (0-2) Urine WBC Occ /HPF (0-4) Urine Squamous Epithelial Cells Occ /LPF Urine Bacteria 0 /HPF (0-FEW) Urine Mucus Slight /LPF White Blood Count 9.9 x10^3/uL (4.0-11.0) Red Blood Count 5.22 x10^6/uL (4.30-5.70) Hemoglobin 14.8 g/dL (13.0-17.5) Hematocrit 42.2 % (39.0-53.0) Mean Corpuscular Volume 81 fL (79-100) Mean Corpuscular Hemoglobin 28 pg (25-35) Mean Corpuscular Hemoglobin Concent 35 g/dL (31-37) Red Cell Distribution Width 15.3 % (11.5-14.5) Platelet Count 286 x10^3/uL (140-400) Neutrophils (%) (Auto) 70 % (31-73) Lymphocytes (%) (Auto) 20 % (24-48) Monocytes (%) (Auto) 7 % (0-9) Eosinophils (%) (Auto) 2 % (0-3) Basophils (%) (Auto) 1 % (0-3) Neutrophils # (Auto) 6.9 x10^3/uL (1.8-7.7) Lymphocytes # (Auto) 2.0 x10^3/uL (1.0-4.8) Monocytes # (Auto) 0.7 x10^3/uL (0.0-1.1) Eosinophils # (Auto) 0.2 x10^3/uL (0.0-0.7) Basophils # (Auto) 0.1 x10^3/uL (0.0-0.2) Sodium Level 141 mmol/L (136-145) Potassium Level 4.1 mmol/L (3.5-5.1) Chloride Level 105 mmol/L (98-107) Carbon Dioxide Level 27 mmol/L (21-32) Anion Gap 9 (6-14) Blood Urea Nitrogen 16 mg/dL (8-26) Creatinine 1.2 mg/dL (0.7-1.3) Estimated GFR (Cockcroft-Gault) 74.0 BUN/Creatinine Ratio 13 (6-20) Glucose Level 106 mg/dL (70-99) Calcium Level 8.8 mg/dL (8.5-10.1) Total Bilirubin 0.4 mg/dL (0.2-1.0) Aspartate Amino Transf (AST/SGOT) 18 U/L (15-37) Alanine Aminotransferase (ALT/SGPT) 22 U/L (16-63) Alkaline Phosphatase 86 U/L (46-116) Troponin I High Sensitivity 18 ng/L (4-75) OG-Gzc-I-Type Natriuretic Peptide 61 pg/mL (0-124) Total Protein 7.5 g/dL (6.4-8.2) Albumin 3.6 g/dL (3.4-5.0) Albumin/Globulin Ratio 0.9 (1.0-1.7) Laboratory Tests Test 07/16/21 11:43 07/16/21 11:50 Urine Collection Type Unknown Urine Color (Auto) Light yellow Urine Turbidity Clear Urine pH (Auto) 5.5 (<5.0-8.0) Urine Specific [place] 1.015 (1.000-1.030) Urine Protein (Auto) Negative mg/dL (Negative) Urine Glucose (Auto)(UA) Negative mg/dL (Negative) Urine Ketones (Auto) Negative mg/dL (Negative) Urine Blood (Auto) Negative (Negative) Urine Nitrite Negative (Negative) Urine Bilirubin (Auto) Negative (Negative) Urine Urobilinogen (Auto) Normal mg/dL (Normal) Urine Leukocyte Esterase (Auto) Negative (Negative) Urine RBC 0 /HPF (0-2) Urine WBC Occ /HPF (0-4) Urine Squamous Epithelial Cells Occ /LPF Urine Bacteria 0 /HPF (0-FEW) Urine Mucus Slight /LPF White Blood Count 9.9 x10^3/uL (4.0-11.0) Red Blood Count 5.22 x10^6/uL (4.30-5.70) Hemoglobin 14.8 g/dL (13.0-17.5) Hematocrit 42.2 % (39.0-53.0) Mean Corpuscular Volume 81 fL (79-100) Mean Corpuscular Hemoglobin 28 pg (25-35) Mean Corpuscular Hemoglobin Concent 35 g/dL (31-37) Red Cell Distribution Width 15.3 % (11.5-14.5) Platelet Count 286 x10^3/uL (140-400) Neutrophils (%) (Auto) 70 % (31-73) Lymphocytes (%) (Auto) 20 % (24-48) Monocytes (%) (Auto) 7 % (0-9) Eosinophils (%) (Auto) 2 % (0-3) Basophils (%) (Auto) 1 % (0-3) Neutrophils # (Auto) 6.9 x10^3/uL (1.8-7.7) Lymphocytes # (Auto) 2.0 x10^3/uL (1.0-4.8) Monocytes # (Auto) 0.7 x10^3/uL (0.0-1.1) Eosinophils # (Auto) 0.2 x10^3/uL (0.0-0.7) Basophils # (Auto) 0.1 x10^3/uL (0.0-0.2) Sodium Level 141 mmol/L (136-145) Potassium Level 4.1 mmol/L (3.5-5.1) Chloride Level 105 mmol/L (98-107) Carbon Dioxide Level 27 mmol/L (21-32) Anion Gap 9 (6-14) Blood Urea Nitrogen 16 mg/dL (8-26) Creatinine 1.2 mg/dL (0.7-1.3) Estimated GFR (Cockcroft-Gault) 74.0 BUN/Creatinine Ratio 13 (6-20) Glucose Level 106 mg/dL (70-99) Calcium Level 8.8 mg/dL (8.5-10.1) Total Bilirubin 0.4 mg/dL (0.2-1.0) Aspartate Amino Transf (AST/SGOT) 18 U/L (15-37) Alanine Aminotransferase (ALT/SGPT) 22 U/L (16-63) Alkaline Phosphatase 86 U/L (46-116) Troponin I High Sensitivity 18 ng/L (4-75) XM-Dcq-D-Type Natriuretic Peptide 61 pg/mL (0-124) Total Protein 7.5 g/dL (6.4-8.2) Albumin 3.6 g/dL (3.4-5.0) Albumin/Globulin Ratio 0.9 (1.0-1.7) Images Images MRI brain without and with IV contrast, 07/16/2021 There is restricted diffusion within the posterior-inferior left cerebellar hemisphere, inferior portion of the vermis and left aspect of the cerebellar tonsil, distribution of posterior inferior cerebellar artery. The area is bright on the T2/FLAIR images. It associated parenchymal swelling is noted. There is no evidence of hemorrhagic transformation at this time. Mild brain parenchymal volume loss. Scattered T2/FLAIR hyperintense foci in the supratentorial periventricular white matter and abad, indeterminate but most likely representing chronic microangiopathic disease. Scattered old lacunar infarcts in the periventricular region. No extra-axial fluid collection. No intraparenchymal masses. No abnormal intracranial enhancement. Normal signal voids of the major intracranial vessels. The paranasal sinuses and mastoid air cells are clear. The orbital contents appear within normal limits. IMPRESSION: 1. Acute on subacute infarct involving posterior-inferior left cerebellar hemisphere, inferior portion of the vermis, distribution of the posterior inferior cerebellar artery. No evidence of hemorrhagic transformation at this time. 2. Normal signal void and enhancement of the major intracranial vessels including basilar artery. CT HEAD WO CONTRAST INDICATION: Reason: Dizziness, hypertensive emergency / Spl. Instructions: / History: COMPARISON: January 2019 TECHNIQUE: Axial CT images obtained through the head without intravenous contrast. One or more of the following individualized dose reduction techniques were utilized for this examination: 1. Automated exposure control; 2. Adjustment of the mA and/or kV according to patient size; 3. Use of iterative reconstruction technique. FINDINGS: No intracranial hemorrhage. No significant midline shift. Ventricles and sulci are globally prominent. Scattered foci of low attenuation within the white matter. Region of low density in the cerebellum. Portions of vascular are high density including in the basilar artery region. IMPRESSION: * There is a region of low density within the left side of the cerebellum. Given the patient's symptoms and the presence of this finding this could be secondary to either an area of edema from causes such as left-sided cerebellar ischemia or gliosis from infarct which has occurred after the patient's prior study from January 2019. MRI could better assess the acuity of this finding since it could be acute or chronic. There is also some high density at the basilar artery in this region which could be from the patient's calcific atherosclerosis and artifact but could be further evaluated on MRI as well to ensure that there is no thrombus contributing to this appearance. Report called to the ER at 12:39 PM on date of exam. * Scattered regions of low attenuation within the white matter. Non-specific in nature but a common finding and frequently secondary to small vessel ischemic disease. Assessment/Plan Assessment/Plan Impression: Acute on subacute infarct involving posterior-inferior left cerebellar hemisphere, inferior portion of the vermis, distribution of the posterior inferior cerebellar artery New diagnosis of hypertension Lipid status unknown Denies diabetes Alcohol abuse Tobacco abuse Recommendations: CT angiogram Echocardiogram See stroke orders Discharge as soon as today depending on how he does in rehab. Discussed smoking and alcohol cessation with the patient. Thank you for letting me help with the patient's care. SMITA MILLER MD Jul 17, 2021 09:24
[2021-07-17] MEDS ORDERED: ASPIRIN RECTAL 300 MG SUPP. PR PRN (09:30)
[2021-07-17] MEDS ORDERED: ATOR20TA58 PO (09:30)
[2021-07-17] MEDS ORDERED: ASPIRIN ENTERIC COATED 325 MG TABLET.DR. PO SCH (10:00)
[2021-07-17 10:07] LABS: CHOLESTEROL/HDL RATIO 2.5
[2021-07-17] MEDS: IOHEXOL 300 MG/ML 100ML VIAL. IV ONE (10:15)
[2021-07-17] MEDS ORDERED: CONTRAST GIVEN. MC PRN (10:30)
[2021-07-17 11:00] VITALS: BP 173/100
--- NOTE | 2021-07-17 13:56 | CARD ---
MR#: [id number] Date of Study: 07/17/2021 Ordering Physician: SMITA MILLER, Referring Physician: SMITA MILLER Tech: Wayne Holden [facility] APPROVED REPORT EXAM: Two-dimensional and M-mode echocardiogram with Doppler and color Doppler. Other Information Quality : FairHR: 74bpm Rhythm : NSRTechnically limited study due to smoking. INDICATION CVA/TIA Echo Enhancing Agent Agent/Amount Used: Agitated Saline 8mL RISK FACTORS Hypertension Hyperlipidemia Smoking 2D DIMENSIONS IVSd1.4 (0.7-1.1cm)Aortic Root(2D)4.0 (2.0-3.7cm) LVDd5.1 (3.9-5.9cm)LVOT Diameter2.2 (1.8-2.4cm) PWd1.3 (0.7-1.1cm)LVDs3.1 (2.5-4.0cm) FS (%) 38.4 %SV83.9 ml LVEF(%)68.4 (>50%) Aortic Valve AoV Peak Marcelo.104.4cm/sAoV VTI19.8cm AO Peak GR.4.4mmHgLVOT VTI 17.65cm AO Mean GR.3mmHgAI P 1/2 [id number] Mitral Valve MV E Wibywrkp15.6cm/sMV E Peak Gr.3mmHg MV DECEL [id number] A Mvstnqwe33.7cm/s MV E Mean Gr.1mmHgE/A Ratio0.8 TDI Lateral E' P. V4.31cm/sMedial E' P. V4.18cm/s E/Lateral E'9.7E/Medial E'10.0 Tricuspid Valve TR P. [id number]/sTR Peak Gr.27mmHg Pulmonary Vein S1 Ieuoxlde50.2cm/sS2 Eebjfedy52.96cm/s D2 Uwoxynhq27.0cm/s LEFT VENTRICLE The left ventricle is normal size. There is mild to moderate concentric left ventricular hypertrophy. The left ventricular systolic function is normal and the ejection fraction is within normal range. E F 55% There is normal LV segmental wall motion. Transmitral Doppler flow pattern is Grade I-abnormal relaxation pattern. No left ventricle thrombus noted on this study. There is no ventricular septal de fect visualized. There is no left ventricular aneurysm. There is no mass noted in the left ventricle. RIGHT VENTRICLE The right ventricle is normal size. There is normal right ventricular wall thickness. The right ventr icular systolic function is normal. ATRIA The left atrium size is normal. The right atrium size is normal. Interatrial septum is intact without evidence of ASD or PFO, noted on 2-D, doppler imaging and saline contrast injection. AORTIC VALVE The aortic valve is not well visualized. Doppler and Color Flow revealed trace to mild aortic regurgi tation. There is no significant aortic valvular stenosis. There is no aortic valvular vegetation. MITRAL VALVE The mitral valve is normal in structure and function. There is no evidence of mitral valve prolapse. There is no mitral valve stenosis. Doppler and Color-flow revealed trace to mild mitral regurgitation . TRICUSPID VALVE The tricuspid valve is normal in structure and function. Doppler and Color Flow revealed trace to mil d tricuspid regurgitation. The PA pressure was estimated at 35 mmHg. There is no tricuspid valve prol apse or vegetation. There is no tricuspid valve stenosis. PULMONIC VALVE The pulmonic valve is not well seen. Doppler and Color Flow revealed no pulmonic valvular regurgitati on. There is no pulmonic valvular stenosis. GREAT VESSELS The aortic root is mildly dilated at 4.0 cm. The ascending aorta is normal in size. The IVC is normal in size and collapses >50% with inspiration. PERICARDIAL EFFUSION There is no pleural effusion. There is no evidence of significant pericardial effusion. Critical Notification Critical Value: No <Conclusion> There is mild to moderate concentric left ventricular hypertrophy. The left ventricular systolic function is normal and the ejection fraction is within normal range. EF 55% There is normal LV segmental wall motion. Interatrial septum is intact without evidence of ASD or PFO, noted on 2-D, doppler imaging and saline contrast injection. Signed by : Rodolfo Sorenson, Electronically Approved : 07/17/2021 13:55:27
--- NOTE | 2021-07-17 14:43 | RAD ---
EXAM: CTA HEAD AND NECK W/WO CONTRAST DATE: 07/17/2021 10:08 AM INDICATION: cerebellar stroke TECHNIQUE: CTA angiogram of the head and neck was obtained after IV bolus administration of 75 cc of Omnipaque 300. The images were sent to workstation and multiplanar reconstructions were obtained. Mu ltiplanar reconstruction images to include MIP and 3-D reconstruction images are submitted. One or more of the following dose reduction techniques were utilized: Automated exposure control (AEC ), Adjustment of mA and/or kV according to patient size, Use of iterative reconstruction technique allison ch as ASiR, CT scan done according to ALARA and image gently/image wisely COMPARISON: MRI brain 07/16/2021. CT head 07/16/2021. FINDINGS: CTA Head: Atherosclerosis of the cavernous and paraclinoid ICAs with 25-50 percent stenosis on the right and le ss than 25 percent stenosis on the left. The anterior and middle cerebral arteries are patent and nor mal caliber. Left vertebral artery is hypoplastic, markedly so after the takeoff of PICA. High-grade stenosis versus focal occlusion of left PICA distally (series 4 images [id number]). The right vertebral artery, basilar artery, and posterior cerebral arteries are patent and normal caliber. No aneurysm or arteriovenous malformation is seen. CTA Neck: Right carotid: The right common carotid artery is patent and normal caliber. Atherosclerosis of the c arotid bifurcation. No stenosis of the right internal carotid artery per NASCET criteria. The right e xternal carotid artery is patent. Left carotid: The left common carotid artery is patent and normal caliber. Atherosclerosis of the car otid bifurcation. 25 percent stenosis of the left internal carotid artery per NASCET criteria. The le ft external carotid artery is patent. Right vertebral: Mild atherosclerosis at the origin of the right vertebral artery, which is otherwise patent and normal caliber. Left vertebral: The left vertebral artery is patent and demonstrates mild diffuse hypoplasia. Mild atherosclerosis of the aortic arch. The origins of the brachiocephalic and subclavian arteries a re mildly atherosclerotic. No cervical lymphadenopathy. The thyroid gland is normal. The parotid and submandibular glands are no rmal. The visualized aerodigestive tract is unremarkable. Moderate multilevel degenerative disc height loss. Multilevel disc protrusions and marginal osteophyt es results in multilevel spinal canal stenosis. Multilevel uncovertebral and facet arthrosis with mul tilevel neural foraminal narrowing. Centrilobular emphysema in the visualized lung apices. IMPRESSION: 1. No proximal large vessel occlusion. High-grade stenosis versus focal occlusion of left distal PICA . 2. Atherosclerosis of the cervical ICAs with 25 percent stenosis on the left and no stenosis on the r ight. 3. 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 This impa irs evaluation for underlying stenosis. PQRS Compliance Statement - Stenosis calculations for CT, MR and conventional angiography are based u yolanda measurement of the distal ICA diameter in accordance with the NASCET methodology. Electronically signed by: Dre Mcallister MD (07/17/2021 2:41 PM) [id number]
[2021-07-17 15:00] VITALS: BP 184/110
--- NOTE | 2021-07-17 16:46 | NUR ---
Discharge Note: PT DISCHARGED HOME WITH SELF CARE. PT LEFT FACILITY VIA PRIVATE VEHICLE WITH FRIEND AT 1620. PT STABLE AND ALERT UPON DISCHARGE. PT PIV REMOVED FROM SLICK WITHOUT COMPLICATIONS, BANDAGE APPLIED. PT EDUCATED ABOUT DISCHARGE INSTRUCTIONS, DISCHARGE MEDICATIONS, AND FOLLOW-UP CARE INSTRUCTIONS. EDUCATED ABOUT IMPORTANCE OF STROKE PREVENTION, ASA, AND ATORVASTATING COMPLIANCE. NO CONCERNS VOICED AT THIS TIME. PT LEFT WITH ALL PERSONAL BELONGINGS. BROOKLYNN LUCIANO [address] ICU Discharge instructions and discharge home medications reviewed with Patient and a copy given. All questions have been answered and understanding verbalized.
== END 2021-07-17 16:20 | disposition home or self-care (01) | DRG 65 ==
LOC: ER 10:37 → 1 WEST ICU 17:50 → ER 18:20
PROVIDERS: ADMIT Internal Medicine; ATTEND Internal Medicine
DX: I63.542 Cerebral infarction due to unspecified occlusion or stenosis of left cerebellar artery (principal); I16.1 Hypertensive emergency; B00.1 Herpesviral vesicular dermatitis; F10.10 Alcohol abuse, uncomplicated; F17.210 Nicotine dependence, cigarettes, uncomplicated; I10 Essential (primary) hypertension; Z82.49 Family history of ischemic heart disease and other diseases of the circulatory system; Z83.3 Family history of diabetes mellitus; Z90.49 Acquired absence of other specified parts of digestive tract; R29.700 NIHSS score 0
CPT/HCPCS: 36415; 70450; 70496; 70498; 70553; 71045; 80053; 80061; 81001; 83880; 84484; 85025; 93005; 93306; 96374; 96375; A9575; J0360; J0780; J1200; J3010; J3490; J7030; Q9967; 92610-GN; 99285-25; C8929; G0378